=== PATIENT | male | born 1970 | race Caucasian/White ===

== ENCOUNTER → 2017-09-30 12:11 | Outpatient (CLI) | payer OTHER, SELFPAY ==
--- NOTE | 2017-09-30 12:15 | RAD_ITS ---
STUDY: X-RAY - LUMBAR SPINE REASON FOR EXAM: Male, 46 years old. Back pain. TECHNIQUE: 3 view(s) of the lumbar spine were obtained. COMPARISON: None FINDINGS: Normal lumbar lordosis. There is no substantial scoliosis. There is a normal alignment of the vertebrae. Normal vertebral bodies and endplates. Normal disc space heights. The soft tissue structures are unremarkable. RAD/Lumbar Spine 2 or 3 Views IMPRESSION: Normal x-ray examination of the lumbar spine. Electronically Signed: Tevin Wynne MD at 15:11 EDT Tel [phone], Service support ,
--- NOTE | 2017-09-30 12:15 | RAD_ITS ---
STUDY: X-RAY - THORACIC SPINE REASON FOR EXAM: Male, 46 years old. Back pain. TECHNIQUE: 3 view(s) of the thoracic spine were obtained. COMPARISON: None. FINDINGS: Normal kyphosis of the thoracic spine. There is no substantial scoliosis. Normal thoracic vertebrae and endplates. Normal disc space heights. The soft tissue structures are unremarkable. RAD/Thoracic Spine 2 Views IMPRESSION: Normal x-ray examination of the thoracic spine. Electronically Signed: Tevin Wynne MD at 15:20 EDT Tel [phone], Service support ,
== END ==
PROVIDERS: Family Provider Family Medicine; PCP Family Medicine; Visit Provider Family Medicine
DX: M54.9 Dorsalgia, unspecified (principal)
CPT/HCPCS: 72070; 72100

== ENCOUNTER → 2017-11-08 16:22 | Outpatient (CLI) | payer OTHER, SELFPAY | PROVIDERS: Family Provider Family Medicine; PCP Family Medicine | DX: H10.89 Other conjunctivitis (principal); A74.9 Chlamydial infection, unspecified | CPT/HCPCS: 87070; 87075; 87205 ==

== ENCOUNTER → 2017-11-25 13:02 | Outpatient (CLI) | payer OTHER, SELFPAY ==
[2017-11-25 13:52] LABS: Absolute Lymphocyte Count 2.42 X10^3/ul (0.83-4.51); Absolute Neutrophil Count 4.9 X10^3/uL (2.0-7.7); Basophil# 0.09 X10^3/uL; Eosinophil# 0.14 X10^3/uL; Eosinophils% 1.6 % (0-5); Hemoglobin 15.7 g/dl (13.0-16.5); Lymphocyte # 2.42 X10^3/ul (4.0); Lymphocyte % 26.9 % (19-41); Mean Corp Hgb Conc 34.1 g/gl (32-36); Mean Corpuscular Hgb 30.8 pg (27.0-32.0); Mean Corpuscular Volume 90.4 fL (80-94); Monocyte# 1.48 X10^3/uL; Monocyte% 16.4 % (0-10); Neutrophil # 4.86 X10^3/uL (2.7-7.7); Neutrophil % 53.9 % (47-70); Platelet Count 121 K/mm3 (150-450); RBC Distribution Width CV 14.3 % (11.6-14.6); RBC Distribution Width SD 47.2 fl (35.1-43.9); Red Blood Count 5.09 M/mm3 (4.6-6.2)
[2017-11-25 13:56] LABS: POSITIVE COUNT NO; POSITIVE DIFFERENTIAL NO; POSITIVE MORPHOLOGY NO
[2017-11-25 14:27] LABS: ALB/GLOB Ratio 1.1 RATIO (0.9-2.4); AST(SGOT) 19 U/L (15-37); Alanine Aminotransfer ALT/SGPT 28 U/L (16-61); Albumin, Serum 3.7 g/dL (3.2-5.0); Alkaline Phosphatase 71 U/L (45-117); Anion Gap 7 (5-15); BUN 11 mg/dL (7-18); BUN/Creat Ratio 9.4 RATIO (10-20); Calcium,Total 8.8 mg/dL (8.5-10.1); Chloride 107 mmol/L (98-107); Creatinine, Serum 1.17 mg/dL (0.70-1.30); EST Glomerular Filtration Rate 71 mL/min (>60); Est Glom Filt Rate - Afr Amer 86 mL/min (>60); Globulin 3.5 g/dL (2.2-4.2); Glucose 97 mg/dL (74-106); Potassium 3.6 mmol/L (3.5-5.1); Protein, Total 7.2 g/dL (6.4-8.2); Sodium Level 141 mmol/L (136-145); Thyroid Stim Hormone (TSH) 2.92 uIU/mL (0.358-3.74)
[2017-11-25 14:29] LABS: Vitamin D,25 Hydroxy 33.3 ng/mL (29.95-100.01)
[2017-12-01 16:10] LABS: Testosterone, Free 16.66 ng/dL (5.00-21.00)
[2017-12-02 09:43] LABS: Testosterone, % Free 3.76 % (1.50-4.20); Testosterone, Total 443 ng/dL (264-916)
== END ==
PROVIDERS: Family Provider Family Medicine; PCP Family Medicine; Visit Provider Family Medicine
DX: R53.83 Other fatigue (principal); N52.9 Male erectile dysfunction, unspecified
CPT/HCPCS: 36415; 80053; 82306; 84402; 84403; 84443; 85025

== ENCOUNTER → 2018-02-09 10:16 | Outpatient (CLI) | payer OTHER, SELFPAY ==
--- NOTE | 2018-02-09 10:18 | RAD_ITS ---
STUDY: X-RAY - LEFT KNEE REASON FOR EXAM: Male, 47 years old. Pain, decreased range of motion TECHNIQUE: 4 view(s) of the knee. COMPARISON: None. FINDINGS: Normal visualized distal femur. Normal visualized proximal tibia and fibula. Normal proximal tibiofibular articulation. There is mild degenerative arthrosis of the medial femorotibial compartment. Normal lateral femorotibial compartment. There is mild degenerative arthrosis of the patellofemoral articulation. The soft tissue structures are unremarkable. RAD/Knee 4 or More Views IMPRESSION: Degenerative arthrosis. Electronically Signed: Sj Garcia MD at 11:18 EDT , Service support ,
--- NOTE | 2018-02-09 10:20 | RAD_ITS ---
STUDY: X-RAY - RIGHT KNEE REASON FOR EXAM: Male, 47 years old. Pain, decreased range of motion TECHNIQUE: 4 view(s) of the knee. COMPARISON: None. FINDINGS: Normal visualized distal femur. Normal visualized proximal tibia and fibula. Normal proximal tibiofibular articulation. There is mild degenerative arthrosis of the medial femorotibial compartment. Normal lateral femorotibial compartment. There is mild degenerative arthrosis of the patellofemoral articulation. The soft tissue structures are unremarkable. RAD/Knee 4 or More Views IMPRESSION: Degenerative arthrosis. Electronically Signed: Sj Garcia MD at 11:19 EDT , Service support ,
== END ==
PROVIDERS: Family Provider Family Medicine; PCP Family Medicine; Visit Provider Family Medicine
DX: M25.561 Pain in right knee (principal); M25.562 Pain in left knee
CPT/HCPCS: 73564

== ENCOUNTER → 2018-07-31 15:57 | Outpatient (CLI) | payer OTHER, SELFPAY ==
--- NOTE | 2018-07-31 16:12 | EKG12_ITS ---
Test Reason : PREOP Blood Pressure : / mmHG Vent. Rate : 085 BPM Atrial Rate : 085 BPM P-R Int : 130 ms QRS Dur : 092 ms QT Int : 358 ms P-R-T Axes : 047 066 052 degrees QTc Int : 426 ms Normal sinus rhythm Normal ECG Confirmed by BRYANNA WHITE, SINGH ([id number]), social media editor JEFFERSON EDDY ([id number] on 08/01/2018 5:15:01 PM Referred By: Karthik Toledo Confirmed By:SINGH GOULD MD
[2018-07-31 17:16] LABS: Hemoglobin 15.1 g/dl (13.0-16.5); Mean Corp Hgb Conc 32.8 g/gl (32-36); Mean Corpuscular Hgb 30.6 pg (27.0-32.0); Mean Corpuscular Volume 93.1 fL (80-94); Mean Platelet Vol. 10.7 fl (6.2-12.0); Platelet Count 137 K/mm3 (150-450); RBC Distribution Width CV 13.5 % (11.6-14.6); RBC Distribution Width SD 44.7 fl (35.1-43.9); Red Blood Count 4.94 M/mm3 (4.6-6.2); White Blood Count 8.4 K/mm3 (4.4-11.0)
[2018-07-31 17:23] LABS: Scan Indicated on CBC? Y/N NO
[2018-07-31 17:36] LABS: Anion Gap 10 (5-15); BUN 18 mg/dL (7-18); BUN/Creat Ratio 17.5 RATIO (10-20); Chloride 103 mmol/L (98-107); Creatinine, Serum 1.03 mg/dL (0.70-1.30); EST Glomerular Filtration Rate 82 mL/min (>60); Est Glom Filt Rate - Afr Amer 99 mL/min (>60); Glucose 81 mg/dL (74-106); Potassium 3.8 mmol/L (3.5-5.1); Sodium Level 142 mmol/L (136-145)
== END ==
PROVIDERS: Family Provider Family Medicine; PCP Family Medicine; Referring Provider Physician Assistant; Visit Provider Physician Assistant
DX: Z01.818 Encounter for other preprocedural examination (principal); Z01.810 Encounter for preprocedural cardiovascular examination; I10 Essential (primary) hypertension; F17.200 Nicotine dependence, unspecified, uncomplicated
CPT/HCPCS: 36415; 80048; 85027; 93005

== ENCOUNTER → 2018-08-09 10:56 | Outpatient (CLI) | payer OTHER, SELFPAY ==
--- NOTE | 2018-08-09 11:07 | RAD_ITS ---
STUDY: X-RAY CHEST REASON FOR EXAM: Male, 47 years old. Knee surgery, preop evaluation TECHNIQUE: PA and lateral views of the chest. COMPARISON: 02/09/2016 FINDINGS: The lungs are clear and expanded. There is no demonstrated pleural abnormality. Normal size heart. Normal mediastinum and ousmane. Normal visualized pulmonary arteries. Normal visualized aortic arch and descending thoracic aorta. Normal visualized thoracic spine. Normal visualized ribs, clavicles, and shoulders. There is no demonstrated abnormality of the visualized soft tissue structures of the upper abdomen. RAD/Chest PA and Lateral IMPRESSION: Normal x-ray examination of the chest. Electronically Signed: Zoran Carlson DO at 11:54 EST Tel , Service support ,
--- OUTSIDE RECORDS SUMMARY | 2018-10-11 08:54 | XMS RPT_ITS ---
:1970 Author Organization OHIP Care Team Providers Name Role Phone Karthik Toledo Attending Unavailable Karthik Toledo Referring Unavailable Kenny, Vasile Primary Care Unavailable Malik Yousesf Attending Unavailable Malik Youssef Referring Unavailable Cox, Vasile Primary Care Unavailable Vasile Cox Attending Unavailable Vasile Cox Referring Unavailable Kenny, Vasile Primary Care Unavailable Vincent Perkins Attending Unavailable Kenny Vasile Primary Care Unavailable Vincent Perkins Referring Unavailable PATRIA TOMAS Attending Unavailable PATRIA TOMAS Referring Unavailable Vasile Cox Primary Care Unavailable Karthik Toledo Attending Unavailable Karthik Toledo Referring Unavailable Vasile Cox Primary Care Unavailable Joe Bolaños Consulting Unavailable PROBLEMS PROBLEMS DATE TYPE CONDITION / CODE ATTENDING STATUS SOURCE 02/09/2018 Unknown M25.561 - Pain in [place], Active Bhavana right knee / [facility] M25.561(ICD-10) Hospital Repository 02/09/2018 Unknown M25.562 - Pain in Domonique, Active [facility] [facility] [place] M25.562(ICD-10) Hospital Repository 11/21/2017 Unknown H10.89 - Other PATRIA TOMAS Active [place] conjunctivitis / [facility] H10.89(ICD-10) Hospital Repository PROCEDURES PROCEDURES No Procedure Records FoundRESULTS RESULTS CHEST PA AND LATERAL Observed: 08/09/2018 Status: F Source: [facility] 11:07 AM [facility] REPOSITORY [facility] Imaging Services [address] [place] [address] Chest PA and Lateral MR#: [id number] Acct: [id number] Name: TYRONEMAGDALENO M Rep #: [id number] : 1970 M 47 [facility] PCP: Vasile Cox MD Status: REG CLI Study: Chest PA and Lateral Date of Exam: 08/09/18 Exam# [id number] Ordering Dr: Karthik Toledo PA-C STUDY: X-RAY CHEST REASON FOR EXAM: Male, 47 years old. Knee surgery, preop evaluation TECHNIQUE: PA and lateral views of the chest. COMPARISON: 02/09/2016 FINDINGS: The lungs are clear and expanded. There is no demonstrated pleural abnormality. Normal size heart. Normal mediastinum and ousmane. Normal visualized pulmonary arteries. Normal visualized aortic arch and descending thoracic aorta. Normal visualized thoracic spine. Normal visualized ribs, clavicles, and shoulders. There is no demonstrated abnormality of the visualized soft tissue structures of the upper abdomen. RAD/Chest PA and Lateral IMPRESSION: Normal x-ray examination of the chest. Electronically Signed: Zoran Carlson DO at 11:54 EST Tel , Service support , CC: Vasile Cox MD; Karthik YIN Pilot Plant Research Technician: Signed 12 LEAD ELECTROCARDIOGRAM Observed: 08/01/2018 Status: F Source: [place] 5:15 PM [facility] REPOSITORY [facility] Cardiovascular Services [address] [place] [address] 12 Lead EKG 07/31/18 1618 MR#: [id number] Acct: [id number] Name: MAGDALENO HANSEN Rep #: [id number] : 1970 47 From: Soto Mohr MD Attending Dr: Karthik Brannon Status: REG CLI Ordering Dr: Karthik Toledo PA-C Date: 07/31/18 Location: LAB Sex: M C Admitted: Test Reason : PREOP Blood Pressure : / mmHG Vent. Rate : 085 BPM Atrial Rate : 085 BPM P-R Int : 130 ms QRS Dur : 092 ms QT Int : 358 ms P-R-T Axes : 047 066 052 degrees QTc Int : 426 ms Normal sinus rhythm Normal ECG Confirmed by BRYANNA WHITE, SOTO ([id number]), supervising editor trailer JEFFERSON EDDY ([id number]) on 08/01/2018 5:15:01 PM Referred By: Karthik Toledo Confirmed By:SOTO MOHR MD 08/01/18 1715 Date Soto Mohr MD CC: Vasile Cox MD; Karthik YIN Signed CBC-COMPLETE BLOOD CNT Collected: 07/31/2018 Status: F Source: [place] NO DIFF 4:01 PM [facility] REPOS[facility]ORY TYPE CODE TESTS RESULT OUT OF RANGE REFERENCE UNITS LAB L100.1000 4.4-11.0 K/mm3 Normal WBC 8.4 LAB L100.1200 4.6-6.2 M/mm3 Normal RBC 4.94 LAB L100.1300 13.0-16.5 g/dl Normal HGB 15.1 LAB L100.1400 40-54 % Normal HCT 46.0 LAB L100.1500 80-94 fL Normal MCV 93.1 LAB L100.1600 27.0-32.0 pg Normal MCH 30.6 LAB L100.1700 32-36 g/gl Normal MCHC 32.8 LAB L100.1810 11.6-14.6 % Normal RDW CV 13.5 LAB L100.1820 35.1-43.9 fl High RDW SD 44.7 LAB L100.1900 150-450 K/mm3 Low PLT 137 LAB L100.2000 6.2-12.0 fl Normal MPV 10.7 Performed By: #### L100.0500 #### [facility] [address] [place], [address] BASIC METABOLIC Collected: 07/31/2018 Status: F Source: [facility] PROFILE ([facility]) 4:01 PM [facility] REPOS[facility] TYPE CODE TESTS RESULT OUT OF RANGE REFERENCE UNITS LAB L501.0100 74-106 mg/dL Normal GLU 81 Result Comment: Please note revised GLUCOSE reference range effective 2017. LAB L501.1000 7-18 mg/dL Normal BUN 18 LAB L501.1100 0.70-1.30 mg/dL Normal CREAT,SERUM 1.03 Result Comment: The validity of the calculated GFR AND GFRAA in patients over 70 years has not been determined. Clinical correlation is essential. LAB L501.1110 >60 mL/min Normal EST GFR 82 Result Comment: Non- GFR Calc LAB L501.1115 >60 mL/min Normal EST GFR - AA 99 Result Comment: GFR Calc LAB L501.1300 10-20 RATIO Normal BUN/CRE 17.5 LAB L501.2200 8.5-10.1 mg/dL CA Normal 9.0 LAB L501.5300 136-145 mmol/L NA Normal 142 LAB L501.5600 3.5-5.1 mmol/L K Normal 3.8 LAB L501.5900 98-107 mmol/L CL Normal 103 LAB L501.6100 21.0-32.0 mmol/L Normal CO2 29.0 LAB L501.6200 5-15 Normal GAP 10 Performed By: #### L500.2500 #### [facility] [address] [place], [address] KNEE 4 OR MORE Observed: 02/09/2018 Status: F Source: [place] VIEWS 10:19 AM [facility] REPOSITORY [facility] Imaging Services [address] [place] [address] Knee 4 or More Views MR#: [id number] Acct: [id number] Name: MAGDALENO HANSEN Rep #: [id number] : 1970 M 47 From: Sebastián Garcia MD PCP: Vasile Cox MD Status: REG CLI Study: Knee 4 or More Views Date of Exam: 02/09/18 Exam# [id number] Ordering Dr: Gerber Youssef MD STUDY: X-RAY - LEFT KNEE REASON FOR EXAM: Male, 47 years old. Pain, decreased range of motion TECHNIQUE: 4 view(s) of the knee. COMPARISON: None. FINDINGS: Normal visualized distal femur. Normal visualized proximal tibia and fibula. Normal proximal tibiofibular articulation. There is mild degenerative arthrosis of the medial femorotibial compartment. Normal lateral femorotibial compartment. There is mild degenerative arthrosis of the patellofemoral articulation. The soft tissue structures are unremarkable. RAD/Knee 4 or More Views IMPRESSION: Degenerative arthrosis. Electronically Signed: Sj Garcia MD at 11:18 EDT , Service support , CC: Malik Youssef MD; Vasile Cox MD Pilot Plant Research Technician: Signed KNEE 4 OR MORE Observed: 02/09/2018 Status: F Source: [place] VIEWS 10:19 AM [facility] REPOSITORY [facility] Imaging Services [address] [place] [address] Knee 4 or More Views MR#: [id number] Acct: [id number] Name: MAGDALENO HANSEN Rep #: [id number] : 1970 M 47 From: Sebastián Garcia MD PCP: Vasile Cox MD Status: REG CLI Study: Knee 4 or More Views Date of Exam: 02/09/18 Exam# [id number] Ordering Dr: Gerber Youssef MD STUDY: X-RAY - RIGHT KNEE REASON FOR EXAM: Male, 47 years old. Pain, decreased range of motion TECHNIQUE: 4 view(s) of the knee. COMPARISON: None. FINDINGS: Normal visualized distal femur. Normal visualized proximal tibia and fibula. Normal proximal tibiofibular articulation. There is mild degenerative arthrosis of the medial femorotibial compartment. Normal lateral femorotibial compartment. There is mild degenerative arthrosis of the patellofemoral articulation. The soft tissue structures are unremarkable. RAD/Knee 4 or More Views IMPRESSION: Degenerative arthrosis. Electronically Signed: Sj Garcia MD at 11:19 EDT , Service support , CC: Malik Youssef MD; Vasile Cox MD Pilot Plant Research Technician: Signed CBC W/DIFF, AUTOMATED Collected: 11/25/2017 Status: F Source: [place] 1:06 PM [facility] REPOSITORY Order Comment: Order Date: 10/25/17 Order Info: 0184-1 - CBCD TYPE CODE TESTS RESULT OUT OF RANGE REFERENCE UNITS LAB L100.1000 4.4-11.0 K/mm3 Normal WBC 9.0 LAB L100.1200 4.6-6.2 M/mm3 Normal RBC 5.09 LAB L100.1300 13.0-16.5 g/dl Normal HGB 15.7 LAB L100.1400 40-54 % Normal HCT 46.0 LAB L100.1500 80-94 fL Normal MCV 90.4 LAB L100.1600 27.0-32.0 pg Normal MCH 30.8 LAB L100.1700 32-36 g/gl Normal MCHC 34.1 LAB L100.1810 11.6-14.6 % Normal RDW CV 14.3 LAB L100.1820 35.1-43.9 fl High RDW SD 47.2 LAB L100.1900 150-450 K/mm3 Low PLT 121 LAB L100.2000 6.2-12.0 fl Normal MPV 11.0 LAB L100.2100 47-70 % Normal NEUT% 53.9 LAB L100.2200 19-41 % Normal LY% 26.9 LAB L100.2300 0-10 % High MONO% 16.4 LAB L100.2400 0-5 % Normal EO% 1.6 LAB L100.2500 0-1 % Normal BASO% 1.0 LAB L100.2550 0.0-0.9 % Normal IM GRAN % 0.200 Result Comment: IG% - Immature Granulocytes (promyelocytes, myelocytes and metamyelocytes) > 1% indicates that a LEFT SHIFT is Present. LAB L100.2620 2.0-7.7 X10 3/uL Normal Absolute Neut 4.9 LAB L100.2720 0.83-4.51 X10 3/ul Normal Absolute Lymph 2.42 Performed By: #### L100.0100, L500.4050, L501.9520, L506.1000 #### [facility] [address] [place] [address]. [place], [place], [address] #### L3100.5310 #### [facility] (refer to report for specific site) refer to report for address and phone number COMPREHENSIVE METABOLIC Collected: 11/25/2017 Status: F Source: [facility] FERNANDO 1:06 PM [facility] REPOSITORY Order Comment: Order Date: 10/25/17 Order Info: 0786-1 - CMP Order Info: 3016-3 - TSH TYPE CODE TESTS RESULT OUT OF RANGE REFERENCE UNITS LAB L501.0100 74-106 mg/dL Normal GLU 97 Result Comment: Please note revised GLUCOSE reference range effective 2017. LAB L501.1000 7-18 mg/dL Normal BUN 11 LAB L501.1100 0.70-1.30 mg/dL Normal CREAT,SERUM 1.17 Result Comment: The validity of the calculated GFR AND GFRAA in patients over 70 years has not been determined. Clinical correlation is essential. LAB L501.1110 >60 mL/min Normal EST GFR 71 Result Comment: Non- GFR Calc LAB L501.1115 >60 mL/min Normal EST GFR - AA 86 Result Comment: GFR Calc LAB L501.1300 10-20 RATIO Low BUN/CRE 9.4 LAB L501.1500 6.4-8.2 g/dL Normal T PROT 7.2 LAB L501.1800 3.2-5.0 g/dL Normal ALB 3.7 LAB L501.1950 2.2-4.2 g/dL Normal GLOB 3.5 LAB L501.2000 0.9-2.4 RATIO Normal A/G 1.1 LAB L501.2200 8.5-10.1 mg/dL Normal CA 8.8 LAB L501.4100 15-37 U/L Normal AST 19 LAB L501.4305 45-117 U/L Normal ALK P 71 LAB L501.4405 16-61 U/L Normal ALT 28 LAB L501.4600 0.20-1.00 mg/dL Normal T BILI 0.40 LAB L501.5300 136-145 mmol/L Normal NA 141 LAB L501.5600 3.5-5.1 mmol/L Normal K 3.6 LAB L501.5900 98-107 mmol/L Normal CL 107 LAB L501.6100 21.0-32.0 mmol/L Normal CO2 27.0 LAB L501.6200 5-15 Normal GAP 7 Performed By: #### L100.0100, L500.4050, L501.9520, L506.1000 #### [facility] [address] [place], [place], [address] #### L3100.5310 #### [facility] (refer to report for specific site) refer to report for address and phone number THYROID STIM HORMONE Collected: 11/25/2017 Status: F Source: [place] (TSH) 1:06 PM [facility] REPOSIT[facility] Order Comment: Order Date: 10/25/17 Order Info: 0786-1 - CMP Order Info: 3016-3 - TSH TYPE CODE TESTS RESULT OUT OF RANGE REFERENCE UNITS LAB L501.9520 0.358-3.74 uIU/mL Normal TSH 2.92 Performed By: #### L100.0100, L500.4050, L501.9520, L506.1000 #### [facility] [address] [place], [address] #### L3100.5310 #### [facility] (refer to report for specific site) refer to report for address and phone number VITAMIN D,25 HYDROXY Collected: 11/25/2017 Status: F Source: [place] 1:06 PM [facility] REPOSIT[facility] Order Comment: Order Date: 10/25/17 Order Info: 69360-5 - VITD25 TYPE CODE TESTS RESULT OUT OF RANGE REFERENCE UNITS LAB L506.1000 29.95-100.01 ng/mL Normal Vitamin D 33.3 25-OH Result Comment: Vitamin D 25(OH) Status Range Deficiency <20 ng/mL (50nmol/L) Insuffciency 20 - 30 ng/mL (50 - 75 nmol/L) Sufficiency 30 - 100 ng/mL (75 - 250 nmol/L) Toxicity >100 ng/mL (>250 nmol/L) Performed By: #### L100.0100, L500.4050, L501.9520, L506.1000 #### [facility] [address] [facility] [place], [address] #### L3100.5310 #### [facility] (refer to report for specific site) refer to report for address and phone number TESTOSTERONE, TOTAL / Collected: 11/25/2017 Status: F Source: [place] FREE 1:06 PM [facility] REPOSITORY Order Comment: Order Date: 10/25/17 Order Info: 0024-1 - TESTF Has Patient had X-rays with Contrast this admission? Y TYPE CODE TESTS RESULT OUT OF RANGE REFERENCE UNITS LAB L3100.5320 264-916 ng/dL Normal 443 TESTALFREDOTO MINNA Result Comment: Adult male reference interval is based on a population of healthy nonobese males (BMI <30) between 19 and 39 years old. sherlyn Vides.al. JCEM 2017,102;9236-8817. PMID: 10095469. LAB L3100.5340 5.00-21.00 ng/dL TESTOSTER,FREE Normal 16.66 LAB L3100.5360 1.50-4.20 % TESTOSTER %FREE Normal 3.76 Result Comment: Performed at: - [facility] [id number] Saw Setter: Eliud Ferreira PhD, Phone: [phone] Performed at: [facility] [id number] Saw Setter: Steve Campa MD, Phone: [phone] Performed By: #### L100.0100, L500.4050, L501.9320, L506.1000 #### [facility] [place], [place], [address] #### L3100.5310 #### [facility] (refer to report for specific site) refer to report for address and phone number Observed: 11/08/2017 Status: F Source: [place] CULTURE, EYE 1:30 PM [facility] REPOS[facility] Comments: RIGHT EYE Gram Stain Gram Stain No organisms seen No cells seen Eye Culture Culture exhibits no growth. Cult, Anaerobic No anaerobic bacteria isolated. Performed By: #### M100.1200 #### [facility] [address] [facility] [place], [place], [id number] Observed: 11/08/2017 Status: F Source: [place] CULTURE, EYE 1:30 PM [facility] REPOS[facility] Comments: LEFT EYE Gram Stain Gram Stain No organisms seen No cells seen Eye Culture Culture exhibits no growth. Cult, Anaerobic No growth in 5 days. Performed By: #### M100.1200 #### [facility]. [place], [place], [id number] MISCELLANEOUS LAB Collected: 11/08/2017 Status: F Source: [place] PROCEDURE 1:30 PM [facility] REPOS[facility] Order Comment: Comments: RIGHT EYE Test(s) Ordered: [id number] TYPE CODE TESTS RESULT OUT OF RANGE REFERENCE UNITS LAB L801.1541 Normal [facility] Result Comment: Chlamydia trachomatis culture Negative [facility] AT [facility]. ORIGINAL REPORT ON FILE IN LAB CONTAINS ADDITIONAL TEST SITE INFORMATION. Performed By: #### L801.1541 #### [facility] [address] [place] [address] [place], [address] MISCELLANEOUS LAB Collected: 11/08/2017 Status: F Source: [place] PROCEDURE 1:30 PM [facility] REPOS[facility] Order Comment: Comments: LEFT EYE Test(s) Ordered: [id number] TYPE CODE TESTS RESULT OUT OF RANGE REFERENCE UNITS LAB L801.1541 Normal [facility] Result Comment: Chlamydia trachomatis culture Negative TESTING PERFORMED AT [facility]. ORIGINAL REPORT ON FILE IN LAB CONTAINS ADDITIONAL TEST SITE INFORMATION. Performed By: #### L801.1541 #### [facility] [address] [place], [place] [address] [place], [place] [address] LUMBAR SPINE 2 OR 3 Observed: 09/30/2017 Status: F Source: [place] VIEWS 12:15 PM [facility]IT[facility] Imaging Services [address] [place] [address] Lumbar Spine 2 or 3 Views MR#: [id number] Acct: [id number] Name: MAGDALENO HANSEN Rep #: [id number] : 1970 M 46 From: Tevin Wynne MD PCP: Vasile Cox MD Status: REG CLI Study: Lumbar Spine 2 or 3 Views Date of Exam: 09/30/17 Exam# [id number] Ordering Dr: Vincent Perkins MD STUDY: X-RAY - LUMBAR SPINE REASON FOR EXAM: Male, 46 years old. Back pain. TECHNIQUE: 3 view(s) of the lumbar spine were obtained. COMPARISON: None FINDINGS: Normal lumbar lordosis. There is no substantial scoliosis. There is a normal alignment of the vertebrae. Normal vertebral bodies and endplates. Normal disc space heights. The soft tissue structures are unremarkable. RAD/Lumbar Spine 2 or 3 Views IMPRESSION: Normal x-ray examination of the lumbar spine. Electronically Signed: Tevin Wynne MD at 15:11 EDT Tel [phone], Service support , CC: Vasile Cox MD; Vincent Perkins MD Pilot Plant Research Technician: Signed THORACIC SPINE 2 Observed: 09/30/2017 Status: F Source: [facility] VIEWS 12:15 PM [facility] REPOSIT[facility] Imaging Services [address] [place] [address] Thoracic Spine 2 Views MR#: [id number] Acct: [id number] Name: MAGDALENO HANSEN Rep #: [id number] : 1970 M 46 From: Tevin Wynne MD PCP: Vasile Cox MD Status: REG CLI Study: Thoracic Spine 2 Views Date of Exam: 09/30/17 Exam# [id number] Ordering Dr: Vincent Perkins MD STUDY: X-RAY - THORACIC SPINE REASON FOR EXAM: Male, 46 years old. Back pain. TECHNIQUE: 3 view(s) of the thoracic spine were obtained. COMPARISON: None. FINDINGS: Normal kyphosis of the thoracic spine. There is no substantial scoliosis. Normal thoracic vertebrae and endplates. Normal disc space heights. The soft tissue structures are unremarkable. RAD/Thoracic Spine 2 Views IMPRESSION: Normal x-ray examination of the thoracic spine. Electronically Signed: Tevin Wynne MD at 15:20 EDT Tel [phone], Service support , CC: Vasile Cox MD; Vincent Perkins MD Pilot Plant Research Technician: Signed ALLERGIES ALLERGIES DATE TYPE / CODE NAME / CODE REACTION SEVERITY SOURCE 12/30/2013 Drug No Known Unknown [place]hav[place] [facility] Allergy/4160 Allergies/F00 Hospital [address]11(SNOMED [id number](RXNOR Repository CT) M) ENCOUNTERS ENCOUNTERS ADMIT/DISCHARGE ACCOUNT ADMITTING ENCOUNTER LOCATION SOURCE NUMBER CLASS 08/09/2018 [id number] [place] 1 [facility] ing:RAD Repository 07/31/2018 [id number] Ambulatory [place] 0 [facility] ing:LAB Repository 02/09/2018 [id number] Ambulatory [place] Bhavana 3 [facility] ing:MTRAD Repository 11/25/2017 [id number] [place] 5 [facility] ing:MTLAB Repository 11/08/2017 [id number] Ambulatory [place] 0 [facility] ing:LABSPEC Repository 09/30/2017 [id number] Ambulatory [place] 7 [facility] ing:MTRAD Repository PAYERS PAYERS ENCOUNTER GUARANTOR PAYER SUBSCRIBER SOURCE 08/09/2018 MAGDALENO Pelaez Primary Insurance:EDDIE [id number] [facility] ANIKA Number: [id number], [place] [id number] Repository [address]Yee: (330) Date:7407-43-31[phone] () [address]VVWHUPQRD, [place] [address]LY: CHECK WEBSITE 08/09/2018 Secondary NOT GIVENUNK [place] Insurance:SELF PAY [facility] Number: Effective Repository Date:2018-08-09 07/31/2018 MAGDALENO Pelaez Primary Insurance:MED MAGDALENO Bateman [id number] MUTUAL TPAPolicy SHEARERDOB: [facility] ANIKA Number: [id number], [place] [id number] Repository [address]Kjz: (330) Date:6209-68-78QB [phone] () [address]JOKHDVCGR, [place] [address]WZ: CHECK WEBSITE 07/31/2018 Secondary NOT GIVENUNK [place] Insurance:SELF PAY [facility] Number: Effective Repository Date:2018-07-31 02/09/2018 Magdaleno Pelaez Primary Insurance:MED Magdaleno Bateman [id number] MUTUAL TPAPolicy ShearerDOB: [facility] [place] Number: [id number], [place] [id number] Repository [address]Tpt: (330) Date:0374-12-05ZB [phone] () [address]MLMPDILAE, [place] [address]MC: CHECK WEBSITE 02/09/2018 Secondary NOT GIVENUNK [place] Insurance:SELF PAY [facility] Number: Effective Repository Date:2018-02-09 11/25/2017 Magdaleno Pelaez Primary Insurance:MED Magdaleno Pulidooster [id number] MUTUAL TPAPolicy ShearerDOB: [facility] [place] Number: [id number], [place] [id number] Repository [address]Gcr: (330) Date:9561-21-61BN [phone] () [address]HAUJHWJSS, [place] [address]KJ: CHECK WEBSITE 11/25/2017 Secondary NOT GIVENUNK [place] Insurance:SELF PAY [facility] Number: Effective Repository Date:2017-11-25 11/08/2017 Magdaleno Pelaez Primary Insurance:MED Magdaleno M [place] [id number] MUTUAL TPAPolicy ShearerDOB: [facility] Number: [id number], [place] [id number] Repository [address]Rcl: (330) Date:1419-71-26VR [phone] () [address]PNUUWPMKM, [place] [address]KI: CHECK WEBSITE 11/08/2017 Secondary NOT GIVENUNK [place] Insurance:SELF PAY [facility] Number: Effective Repository Date:2017-11-08 09/30/2017 Magdaleno Pelaez Primary Insurance:MED Magdaleno [id number] [facility] ShearerDOB: [facility] Number: [id number], [place] [id number] Repository [address]Fko: (330) Date:8516-29-80MS [phone] () [address]RSEPCLGCF, [place] [address]NA: CHECK WEBSITE 09/30/2017 Secondary NOT GIVENUNK [place] Insurance:SELF PAY [facility] Number: Effective Repository Date:2017-09-30
== END ==
PROVIDERS: Family Provider Family Medicine; PCP Family Medicine; Referring Provider Physician Assistant; Visit Provider Physician Assistant
DX: Z01.818 Encounter for other preprocedural examination (principal); Z01.810 Encounter for preprocedural cardiovascular examination; I10 Essential (primary) hypertension; F17.200 Nicotine dependence, unspecified, uncomplicated
CPT/HCPCS: 71046

== ENCOUNTER → 2019-05-16 12:24 | Outpatient (CLI) | payer OTHER, SELFPAY ==
[2019-05-16 14:09] LABS: Hematocrit 47.3 % (40-54); Hemoglobin 15.5 g/dL (13.0-16.5); White Blood Count 6.4 K/mm3 (4.4-11.0)
[2019-05-16 14:36] LABS: Anion Gap 8 (5-15); BUN 16 mg/dL (7-18); Calcium,Total 9.7 mg/dL (8.5-10.1); Chloride 105 mmol/L (98-107); Creatinine, Serum 1.07 mg/dL (0.70-1.30); EST Glomerular Filtration Rate 78 mL/min (>60); Est Glom Filt Rate - Afr Amer 94 mL/min (>60); Glucose 101 mg/dL (74-106); Potassium 3.7 mmol/L (3.5-5.1); Sodium Level 140 mmol/L (136-145); Thyroid Stim Hormone (TSH) 1.27 uIU/mL (0.358-3.74)
== END ==
PROVIDERS: Family Provider Family Medicine; PCP Family Medicine; Visit Provider Family Medicine
DX: R00.2 Palpitations (principal)
CPT/HCPCS: 36415; 80048; 84443; 85014; 85018; 85048

== ENCOUNTER 2019-06-30 21:02 | Emergency (ER) | payer OTHER, SELFPAY ==
[2019-06-30 21:03] VITALS: BP 169/127; PULSE 90; RESP 18; TEMP 36.2; O2SAT 99; BMI 27.3
--- NOTE | 2019-06-30 21:34 | ED.DCSUM_ITS ---
History of Present Illness Chief Complaint: Back Informant: Patient Onset: Today Narrative: Patient is a 48-year-old male presenting with atraumatic back pain. Patient states he was sitting down and suddenly had pain in his right lower back. He notes he also has pain in his right calf. Pain is worse with movement. He describes as feeling there is a ball of muscle that is tightened up and will not relax. He denies any associated fever or chills. He denies any bowel or bladder incontinence. Denies any perineal numbness. He denies any history of cancer or IV drug use. He states he is never had anything like this before. He denies any history of back problems. He did take 3 Excedrin with no significant relief. Patient states he does not normally take anything for pain on a regular basis. He does note that over the weekend he has been putting [place] lights who is been going up and down the ladder a lot. He denies any other complaints at this time. Prior similar symptoms: No Past Medical History - Allergies and Home Meds Allergies/Adverse Reactions: Allergies No Known Allergies Allergy (Verified 06/30/19 21:04) Primary Care Physician: Vasile Cox MD [Primary Care Provider] - Past Medical History: - - GERD, arthritis Surgical History: - - Total knee Lives: Spouse/ Significant Other Smoking Status: Current every day smoker Review of Systems General: Denies: Chills, Fever, Sweats Eyes: Denies: Visual changes - bilaterally, Diplopia ENT: Denies: Rhinorrhea, Sore throat Cardiovascular: Denies: Chest pain, Palpitations Respiratory: Denies: Dyspnea, Cough, Dyspnea on exertion Gastrointestinal: Denies: Abdominal pain, Nausea, Vomiting, Diarrhea, Melena, Hematochezia Genitourinary: Denies: Dysuria, Hematuria, Frequency Musculoskeletal: Reports: Back pain. Denies: Extremity Pain Skin: Denies: Rash, Wounds Neurological: Denies: Headache, Weakness, Numbness Physical Exam Vital Signs/Narrative: Vital Signs Temp Pulse Resp BP Pulse Ox 06/30/19 21:03 97.2 F L 90 18 169/127 H 99 Inital Vital Signs reviewed: Yes General: Well nourished, Well developed Head: Normocephalic, Atraumatic Eyes: Perrl, EOMI ENT: Moist mucous membranes, No rhinorrhea Neck: Supple, Nontender Cardiovascular: Regular rate, Regular rhythm, No murmurs, - - 2+ bilateral DP pulses Respiratory: No distress, CTA bilaterally, Chest nontender Abdomen: Soft, Nontender, Nondistended, Normal bowel sounds. Negative for: Mass Back: Normal Inspection, Paraspinal Tenderness - Right lower lumbar/sacral area, Positive SLR - Right, Negative SLR - Left. Negative for: Spinal tenderness, CVA tenderness Extremeties: Nontender, No edema Skin: Normal color, No rash Neuro: Alert, Oriented, Normal Strength, Normal Sensation, Normal DTR, Normal Gait, - Psychological: Normal affect Diagnostic/Tx/Re-eval - Medical Decision Making Patient evaluated for atraumatic low back pain. His pain is consistent with sciatica. He has an ipsilateral positive straight leg test. He does not have midline tenderness. He does not have any symptoms concerning for cauda equina syndrome. He is hypertensive but this is likely secondary to his pain. Patient is initially given IM morphine, p.o. Motrin and IM Norflex. He has only minimal improvement with this. He continues to describe a sensation of a pulled muscle so he was then given another dose of IM morphine and p.o. Valium. Patient does have further improvement. Patient will be discharged home with a course of Chilton and Flexeril. He is also given a prescription for Motrin and told to stop taking the meloxicam while he is on this. He is given a p.o. Chilton prior to discharge. Patient is given discharge instructions on sciatica. Patient is counseled on signs and symptoms requiring return to the emergency room. Patient verbalizes agreement and understand this plan. Patient discharged home in stable and improved condition. ED Disposition - Plan for ED Patient: Disposition: Home or Assisted Living Diagnosis: Sciatica, Low back pain Instructions: BACK PAIN w/ SCIATICA Prescriptions: cycloBENZAPRine HCl [Flexeril] 10 mg PO TID PRN #20 tab PRN Reason: Muscle Spasm Prescription Printed Ibuprofen [Motrin] 600 mg PO Q6H PRN PRN #20 tab PRN Reason: Pain/Inflammation Prescription Printed Hydrocodone/Acetaminophen [Chilton 5-325 Tablet] 1 ea PO Q8 PRN 3 Days #10 tab PRN Reason: Pain Score 6-10/10 Prescription Printed Referrals: Vasile Cox MD [Primary Care Provider] - Additional Instructions: Follow-up with your primary care doctor next week if the pain persist. Apply heat to your lower back as this might help. Continue to move around and stretch. You been prescribed Motrin. Take either the Motrin or your Mobic. Do not take both as it would irritate your stomach. Return the emergency room with any worsening symptoms.
[2019-06-30] MEDS: Orphenadrine 60 MG/2 ML Ampul IM (21:54)
[2019-06-30] MEDS: Morphine 4 MG/ML Syringe IM ×2 (21:55→23:36)
[2019-06-30] MEDS: diazePAM 5 MG Tablet PO (22:58)
[2019-06-30] MEDS: Ibuprofen 600 MG Tablet PO (22:58)
[2019-07-01] MEDS: HYDROcodone Bitartrate/Apap 5/325 Tablet PO (00:24)
[2019-07-01 00:26] VITALS: RESP 16
== END 2019-07-01 00:27 | disposition home or self-care (01) ==
PROVIDERS: Emergency Provider Emergency Medicine; Family Provider Family Medicine; PCP Family Medicine
DX: M54.41 Lumbago with sciatica, right side (principal); R03.0 Elevated blood-pressure reading, without diagnosis of hypertension; M19.90 Unspecified osteoarthritis, unspecified site; K21.9 Gastro-esophageal reflux disease without esophagitis; F17.200 Nicotine dependence, unspecified, uncomplicated; Z79.899 Other long term (current) drug therapy
CPT/HCPCS: 96372; 99283

== ENCOUNTER → 2019-09-24 17:44 | Outpatient (CLI) | payer OTHER, SELFPAY | PROVIDERS: PCP Family Medicine; Referring Provider Family Medicine; Visit Provider Family Medicine | DX: R68.89 Other general symptoms and signs (principal) | CPT/HCPCS: 87070; 87205 ==

== ENCOUNTER → 2019-12-07 16:33 | Outpatient (CLI) | payer OTHER, SELFPAY ==
--- NOTE | 2019-12-07 16:36 | RAD_ITS ---
STUDY: X-RAY - LEFT ELBOW REASON FOR EXAM: Male, 49 years old. Left elbow pain x 2 weeks -- no injury, lifting objects is most painful TECHNIQUE: 3 view(s) of the elbow. COMPARISON: None. FINDINGS: Normal visualized humerus, radius and ulna. Normal radiocapitellar and ulnotrochlear articulations. The soft tissue structures are unremarkable. RAD/Elbow min 3 Views IMPRESSION: Normal x-ray examination of the elbow. Electronically Signed: Sj Garcia MD at 17:22 EDT , Service support ,
== END ==
PROVIDERS: PCP Family Medicine; Referring Provider Family Medicine; Visit Provider Family Medicine
DX: M25.522 Pain in left elbow (principal)
CPT/HCPCS: 73080

== ENCOUNTER → 2019-12-27 15:49 | Outpatient (CLI) | payer OTHER, SELFPAY ==
--- NOTE | 2019-12-27 16:06 | MRI_ITS ---
STUDY: MRI RIGHT ELBOW REASON FOR EXAM: Male, 49 years old. PT FELT and quot;POP and quot; IN ELBOW WHILE THROWING A STICK 2 MONS AGO, C/O PAIN ENTIRE ELBOW JOINT, NOW BURSA FORMATION TECHNIQUE: Standardized fat and water weighted pulse sequences were obtained in all 3 orthogonal planes. COMPARISON: X-ray December 07, 2019. FINDINGS: There is a moderate volume joint effusion of the radio-capitellum articulation. Normal radial collateral ligamentous complex. There is a tendinosis of the common extensor tendon origin with a partial deep surface tear, series 6 images 13/24 and 14/24. There is a small volume joint effusion of the ulnotrochlear articulation. Normal ulnar collateral ligamentous complex. There is a tendinosis of the common flexor tendon origin with a partial deep surface tear, series 6. Image 14/24. The cubital tunnel is normal, with a normal ulnar nerve. Normal biceps tendon and distal insertion. Normal lacertus fibrosis. Normal brachialis musculotendinous insertion. Normal triceps tendon and teno-osseous insertion. Normal olecranon process. There is a 2.8 x 1.2 cm heterogeneous fluid collection of the olecranon bursa. The visualized distal humerus, proximal radius, and ulna are normal. There is no acute fracture. The visualized muscles of the distal arm and proximal forearm are normal. MRI/Upper Ext Joint Only(Routine) IMPRESSION: Tendinosis with partial tearing of the common extensor and common flexor tendons. Joint effusions. Olecranon bursitis with fluid collection. Electronically Signed: Lino Lowry MD at 23:52 EDT , Service support ,
== END ==
PROVIDERS: PCP Family Medicine
DX: M25.521 Pain in right elbow (principal)
CPT/HCPCS: 73221

== ENCOUNTER → 2020-03-12 16:00 | Outpatient (CLI) | payer OTHER, SELFPAY ==
[2020-03-12 16:00] VITALS: BMI 27.3
--- NOTE | 2020-03-12 16:04 | RAD_ITS ---
STUDY: X-RAY - RIGHT KNEE REASON FOR EXAM: Male, 49 years old. RT KNEE PAIN, FLUID BUILD UP, HX MENISCUS REPAIR TECHNIQUE: 4 view(s) of the knee. COMPARISON: None. FINDINGS: Normal visualized distal femur. Normal visualized proximal tibia and fibula. Normal proximal tibiofibular articulation. There is no demonstrated fracture. There is mild degenerative arthrosis of the medial femorotibial compartment. Normal lateral femorotibial compartment. There is mild degenerative arthrosis of the patellofemoral articulation. There is no demonstrated joint effusion. The soft tissue structures are unremarkable. RAD/Knee 4 or More Views IMPRESSION: No fractures. No dislocations. Mild degenerative changes. Electronically Signed: Rj Diaz MD at 20:34 EDT , Service support ,
== END ==
PROVIDERS: PCP Family Medicine; Referring Provider Orthopaedic Surgery; Visit Provider Orthopaedic Surgery
DX: M25.561 Pain in right knee (principal)
CPT/HCPCS: 73564

== ENCOUNTER → 2020-07-31 | Outpatient (CLI) | payer OTHER, SELFPAY ==
[2020-03-12 16:04] VITALS: BMI 27.3
== END | disposition home or self-care (01) ==
PROVIDERS: PCP Family Medicine; Referring Provider Family Medicine; Visit Provider Family Medicine
DX: L08.9 Local infection of the skin and subcutaneous tissue, unspecified (principal)
CPT/HCPCS: 87070; 87205

== ENCOUNTER → 2020-09-09 16:44 | Outpatient (CLI) | payer OTHER, SELFPAY ==
[2020-03-12 16:04] VITALS: BMI 27.3
--- NOTE | 2020-09-09 16:50 | RAD_ITS ---
STUDY: X-RAY - RIGHT FOOT CLINICAL: Male, 49 years old. Soft tissue mass on the bottom of the foot. TECHNIQUE: 3 view(s) of the foot. COMPARISON: None. FINDINGS: There is an enthesophyte involving the posterior superior calcaneus at the site of insertion of the Achilles tendon. Normal talus and tarsal bones. Minimal arthrosis of the visualized subtalar, talonavicular, calcaneocuboid, tarsal and tarsometatarsal articulations. Normal metatarsi. Normal metatarsophalangeal joint of the great toe. Normal tibial and fibular sesamoid bones. Normal interphalangeal joint of the great toe. Normal phalanges of the great toe. Normal second through fifth metatarsophalangeal joints. Normal interphalangeal joints and phalanges of the lesser toes. The soft tissue structures are unremarkable. No visualized soft tissue mass. RAD/Foot min 3 Views IMPRESSION: Mild arthrosis of the hindfoot. Electronically Signed: Jeromy Clemons DO at 23:46 EST Tel [phone], Service support ,
== END ==
PROVIDERS: PCP Family Medicine; Referring Provider Podiatrist; Visit Provider Podiatrist
DX: M19.072 Primary osteoarthritis, left ankle and foot (principal)
CPT/HCPCS: 73630

== ENCOUNTER → 2020-10-08 10:42 | Outpatient (CLI) | payer OTHER, SELFPAY ==
[2020-03-12 16:04] VITALS: BMI 27.3
--- NOTE | 2020-10-08 10:46 | MRI_ITS ---
STUDY: MRI RIGHT MIDFOOT REASON FOR EXAM: Right foot mass. TECHNIQUE: Standardized fat and water weighted pulse sequences were obtained in all 3 orthogonal planes. COMPARISON: Radiographs 09/09/2020. FINDINGS: Normal talonavicular articulation. Normal calcaneocuboid articulation. Normal navicular-cuneiform articulations. Normal intercuneiform articulations. 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 There is an os trigonum with mild reactive changes at the synchondrosis (inversion recovery sagittal images 19, 20). Normal first tarsometatarsal articulation. Normal Lisfranc ligament. Normal second and third tarsometatarsal articulations. Normal cuboid fourth and cuboid fifth tarsometatarsal articulation. Normal first through fifth metatarsi. Normal tibialis anterior tendon. Normal extensor hallucis longus tendon. Normal extensor digitorum longus tendons. Normal peroneus longus tendon and distal insertion. Normal peroneus brevis tendon and distal insertion. Normal intrinsic muscles of the foot. There is a lobulated mass in the plantar fascia at the level of the first through third metatarsals and plantar to the tibial sesamoid (T2 series 6 images 1-21; T1 sagittal images 14-22) consistent with plantar fibromatosis. The mass measures 1.5 x 5.3 x 7.3 cm (AP x transverse x length). There is a smaller focus of plantar fibromatosis at the plantar aspect of the fifth proximal phalanx (inversion recovery sagittal image 4; T2 series 6 image 1) measuring 1.1 cm in length. 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 Electronically Signed: Trevin Cartwright MD at 12:58 EDT Tel , Service support ,
== END ==
PROVIDERS: PCP Family Medicine; Referring Provider Podiatrist; Visit Provider Podiatrist
DX: R22.41 Localized swelling, mass and lump, right lower limb (principal)
CPT/HCPCS: 73718

== ENCOUNTER 2021-02-02 16:00 | Outpatient (RCR) | payer OTHER, SELFPAY ==
[2020-03-12 16:04] VITALS: BMI 27.3
--- NOTE | 2020-10-01 14:15 | HP.PTEVAL ---
Patient's Visit Information MAGDALENO HANSEN is a 49 year old M referred to Physical Therapy by ASHLEY ROLLE with a diagnosis of RIGHT TKA. Date of Evaluation: 10/01/20 Physical Therapist: Hank Green, PT, Cert MDT, OCS - Visit Plan Frequency: 3x /Week Duration: 5WEEKS Plan: s/p TKA 09/12. PT INTERVETIONS FOCUS ON ROM/FLEXABLITY/STRETTCHING,FOAM ROLLING ,PROGRESS TO PRES'S QUADS/HAMS/HIP,FUNCTIONAL STRENGTHENING - Subjective This 49 y/o male presents to physical theerapy with Right TKA on 09/12/[address] Nguyen at [facility] [place] . Patient d/c 09/13/20 with fww. Patient uses cane at home. Seen yesterday concerned about ROM. Pateint has had knee pain many years had menisectomy 15 years ago then developed progressive DJD. Patiient had few session of [facility] PT about 5 sessions. Patient has some parathesia knee. Difficulty sleeping at night . Pateint uses ice at home. Patient has 1 story with 4steps no rail. Patient is taking shower walkin . Patient driving.Patient goal normal gait and restore full ROM. Patient surgery TKA impairs function gait and RTW.RTD in 3 weeks. SOCAIL: . 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 GAIT: ambulates with straight cene with right knee flexed with decrease stance time and swing phase. BALANCE: good -. STAIRS: alternating with cane. AROM: supine knee flexion 20 -95 degrees. MMT: QUADS 11.6,HAMS 17.5,HIP FLEXION 24.S. EDEMA: mid patella 41 cm,6 above suprapatella 49 cm. TU.59 SECONDS - Goals Goal 1:: I with HEP Goal Time Frame: 4-6 Weeks Goal 2:: Ambaulte with normal gait pattern no device 90% of the time Goal Time Frame: 4-6 Weeks Goal 3:: Improve AROM 5-110 degrees supine knee flexion to improve gait Goal Time Frame: 4-6 Weeks Goal 4:: Improve strength quads/hams to WFL to improve function to good. Goal Time Frame: 2-4 Weeks Goal 5:: Patient to improve WOMAC AND LFES score by 10 points or > to improve function Goal Time Frame: 4-6 Weeks Goal 6:: Noraml balance Goal Time Frame: 4-6 Weeks - Rehabilitation Potential Physical Therapy Diagnosis: This patient underwent S/P TKR with decrease ROM ,strength ,gait ,pain and stairs and unble return to work thus will benifit from skilled PT Rehabilitation Potential: Good - Anticipated Interventions Patient/Client Instruction: Educate patient on: Condition, Plan of Care For the Purpose of:: To decrease pain, To increase ROM, To improve muscle performance and motor function, To improve ability to perform ADL's, To increase tolerance to activity/condition/position, To improve ability of physical actions for home/community/work/leisure, To improve gait and locomotor functions, To improve health of tissue, To decrease soft tissue restriction, To increase flexibility/ROM, To improve endurance, To improve safety with gait, To improve ability to perform tasks related to life management Therapeutic Exercise to Include: Strength training, Endurance training, Balance training, Flexibilty training, Gait and locomotor training, Passive ROM, Active ROM Comment: quads/hams /hip For the Purpose of:: To decrease pain, To increase ROM, To improve muscle performance and motor function, To improve ability to perform ADL's, To increase tolerance to activity/condition/position, To improve performance and independence with ADL's, To improve ability of physical actions for home/community/work/leisure, To improve gait and locomotor functions, To improve health of tissue, To decrease soft tissue restriction, To increase flexibility/ROM, To improve endurance, To improve balance Cryotherapy (ice pack, ice massage): Yes For the Purpose of:: To decrease pain, To decrease swelling/inflammation Thank you for the opportunity to evaluate your patient. For Medicare and Medicare HMO plans, please review the plan of care and approve it. It will need to be FAXED BACK to us at [phone] for Medicare purposes. For Medicare only, by signing this I certify the plan of care. Please let me know if there are questions or concerns regarding this plan of care. Physician Signature: Date:
--- NOTE | 2021-04-21 07:57 | HP.PT.NRP ---
MAGDALENO HANSEN was seen in my office for initial evaluation on 10/01/20. The following Plan of Care was established for this patient: Initial Frequency: 3x /Week Initial Duration: 5WEEKS Patient/Client Instruction: Educate patient on: Condition, Plan of Care For the Purpose of:: To decrease pain, To increase ROM, To improve muscle performance and motor function, To improve ability to perform ADL's, To increase tolerance to activity/condition/position, To improve ability of physical actions for home/community/work/leisure, To improve gait and locomotor functions, To improve health of tissue, To decrease soft tissue restriction, To increase flexibility/ROM, To improve endurance, To improve safety with gait, To improve ability to perform tasks related to life management Therapeutic Exercise to Include: Strength training, Endurance training, Balance training, Flexibilty training, Gait and locomotor training, Passive ROM, Active ROM For the Purpose of:: To decrease pain, To increase ROM, To improve muscle performance and motor function, To improve ability to perform ADL's, To increase tolerance to activity/condition/position, To improve performance and independence with ADL's, To improve ability of physical actions for home/community/work/leisure, To improve gait and locomotor functions, To improve health of tissue, To decrease soft tissue restriction, To increase flexibility/ROM, To improve endurance, To improve balance For the Purpose of:: To reduce risk of recurrence Cryotherapy (ice pack, ice massage): Yes For the Purpose of:: To decrease pain, To decrease swelling/inflammation This patient was last seen in our office . Pertinent comments regarding their Physical therapy will appear below: Patient was seen for PT for s/p R TKR and manipulation focusing on ROM and stretching pain was a influencing factors At this point I will be discontinuing this patient from physical therapy. I would be happy to see this patient again in the future if found appropriate by the physician. Thank you! Hank Green, PT, Cert MDT, OCS Balance/Gait/Functional tests - Balance/Special Test Scores Lower Extremity Functional Score: 57
== END 2021-02-02 19:00 | disposition home or self-care (01) ==
LOC: PT 16:00
PROVIDERS: PCP Family Medicine
DX: M17.11 Unilateral primary osteoarthritis, right knee (principal)
CPT/HCPCS: 97014; 97032; 97110; 97162; 97530; G0283

== ENCOUNTER 2021-05-20 15:44 | Emergency (ER) | payer OTHER, SELFPAY ==
[2021-05-20 15:45] VITALS: BP 159/91; PULSE 84; RESP 16; TEMP 35.9; O2SAT 99; BMI 29.1
[2021-05-20] MEDS: Orphenadrine 60 MG/2 ML Ampul IM (16:22)
[2021-05-20] MEDS: Morphine 4 MG/ML Syringe 6 MG IM (16:22)
--- NOTE | 2021-05-20 16:29 | EDS_ITS ---
HPI History of Present Illness Chief Complaint: Back Informant: patient Narrative Narrative: Patient is a 50-year-old male with history of sciatica presenting with worsening right low back pain. Patient states been going on for about 10 days. Denies any significant events or trauma that started it. He followed up with his primary care doctor 1 week ago and was put on diazepam. He notes that it helps a little bit at night but he just need something stronger to break the spasm. He notes he was here couple years ago and received a couple shots of in his back got better at that point. He denies any numbness, paresthesias, bowel or bladder incontinence, fever or chills. 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 The pain starts in his lower back and radiates to his hip. He notes he does have a bad knee on the contralateral side and walks differently and that might be worsening. He is currently taking an anti-inflammatory with limited relief of his symptoms. [facility] Medical History Normal colonoscopy (~2001) Home Medications omeprazole 40 mg PO DAILY 12/05/14 [History Last Taken Unknown] bupropion HCl 300 mg PO DAILY 06/30/19 [History Last Taken Unknown] lisdexamfetamine 40 mg PO DAILY 06/30/19 [History Last Taken Unknown] methylprednisolone [Medrol (Jacob)] 4 mg PO DAILY #21 tab 05/20/21 [Rx Last Taken Unknown] nabumetone 750 mg PO DAILY 05/20/21 [History Last Taken Unknown] oxycodone-acetaminophen [Percocet] 1 tab PO Q8H PRN 3 Days #9 tab 05/20/21 [Rx Last Taken Unknown] Allergy/AdvReac Type Severity Reaction Status Date / Time No Known Allergies Allergy Verified 05/20/21 15:44 Surgical History Hx of arthroscopy of right knee (~1992) Hx of cervical spine surgery (~2015) Hx of foot surgery (~2017) Social History Smoking Status: Current every day smoker tobacco type: cigarettes ROS ROS ED Constitutional Constitutional ED: Denies chills or fever(s) Eyes Eyes: Denies blurry vision, change in vision or loss of vision Cardiovascular Cardiovascular: Denies chest pain or dizziness Respiratory/Chest Respiratory/Chest: Denies cough or dyspnea Gastrointestinal Gastrointestinal: Denies nausea or vomiting Genitourinary Genitourinary ED: Denies dysuria or hematuria Musculoskeletal Musculoskeletal: Reports back pain; Denies arthralgias, myalgias or neck pain Integumentary Denies rash or wounds Neurologic Neurologic: Denies focal weakness, headache(s), paresthesias or weakness Psychiatric Psychiatric: Denies anxiety or behavioral changes EXAM Physical Exam Const Vital Signs: 05/20/21 15:45 05/20/21 20:07 Temperature 96.7 F L Temperature Source Temporal Pulse Rate 84 68 Respiratory Rate 16 12 Blood Pressure 159/91 H 128/76 H Blood Pressure Mean 113 Pulse Ox 99 97 Oxygen Delivery Method Room Air Positive well nourished and well developed General Appearance ED: well developed HEENT Reports moist mucous membranes Negative for trauma Eyes PERRL and EOMs intact bilaterally Neck supple Neck Narrative: Normal range of motion Resp normal respiratory effort Cardio regular rate and regular rhythm Cardio Narrative: 2+ bilateral PT pulses GI normal to inspection, nondistended, normoactive bowel sounds and no masses Palpation: Negative for pulsatile mass Back/Spine normal to inspection Back/Spine Narrative: No midline tenderness. Patient has mild tenderness palpation of the right L5 paraspinal area Lumbar Spine / Lower Back: straight leg raise positive right; Negative for straight leg raise positive - left Extremity normal to inspection Extremity Narrative: Normal range of motion of the right hip. General Extremety ED: Negative for edema or tenderness General Extremity: Negative for edema Psych mental status grossly normal Skin no rashes or lesions noted and no wounds MDM MDM MDM Narrative Medical decision making narrative: Patient evaluated for atraumatic low back pain. I suspect this is sciatica versus muscle spasms of the back. Given IM Norflex and morphine. No findings consistent with cauda equina syndrome or epidural abscess. On reevaluation he states no improvement of pain. Is given IM Dilaudid. Still no improvement of pain. Is given IV Dilaudid and Valium. Family has improvement of his pain. Is able to ambulate. Will be discharged home with a Medrol Dosepak and a short prescription for Percocet. OARRS report is checked. Patient will follow up with his orthopedist and his PCP. He is counseled that he might require physical therapy or further evaluation for these recurrent flareups of his back pain. Patient is counseled on signs and symptoms requiring return to the emergency room. Patient verbalizes agreement and understand this plan. Patient discharged home in stable and improved condition. Discharge Plan Triage Chief Complaint: Back ED Provider: Magali Mims Dx/Rx/DC Orders Clinical Impression: Acute right-sided back pain with sciatica Instructions: ED Sciatica Prescriptions: New oxycodone-acetaminophen [Percocet] 5-325 mg tablet 1 tab PO Q8H PRN (Reason: pain) 3 Days Qty: 9 RF: 0 methylprednisolone [Medrol (Jacob)] 4 mg tablets,dose pack 4 mg PO DAILY Qty: 21 RF: 0 No Action omeprazole 40 MG capsule 40 mg PO DAILY RF: 0 bupropion HCl 150 MG tablet sustained-release 12 hr 300 mg PO DAILY RF: 0 lisdexamfetamine 40 MG capsule 40 mg PO DAILY RF: 0 nabumetone 750 mg tablet 750 mg PO DAILY RF: 0 Primary Care Provider: Vasile Cox Referrals: Vasile Cox MD [Primary Care Provider] - Disposition Disposition: Home, Self Care Discharge Date/Time: 05/20/21 20:07
[2021-05-20] MEDS: HYDROmorphone 0.5 MG/0.5 ML SYRINGE IM (17:17)
[2021-05-20] MEDS: HYDROmorphone 0.5 MG/0.5 ML SYRINGE IV (18:52)
[2021-05-20] MEDS: diazePAM 5 MG Tablet PO (19:38)
[2021-05-20 20:07] VITALS: BP 128/76; PULSE 68; RESP 12; O2SAT 97
== END 2021-05-20 20:07 | disposition home or self-care (01) ==
PROVIDERS: Emergency Provider Emergency Medicine; PCP Family Medicine
DX: M54.41 Lumbago with sciatica, right side (principal); F17.210 Nicotine dependence, cigarettes, uncomplicated; Z79.1 Long term (current) use of non-steroidal anti-inflammatories (NSAID); Z79.899 Other long term (current) drug therapy
CPT/HCPCS: 96374; 96375; 99284; A4216

== ENCOUNTER → 2021-06-04 15:44 | Outpatient (CLI) | payer OTHER, SELFPAY ==
--- NOTE | 2021-06-04 15:50 | RAD_ITS ---
STUDY: X-RAY CHEST REASON FOR EXAM: Male, 50 years old. COPD TECHNIQUE: PA and lateral views of the chest. COMPARISON: 08/09/2018. FINDINGS: The lungs are clear and expanded. There is no demonstrated pleural abnormality. Normal size heart. Normal mediastinum and ousmane. Normal visualized pulmonary arteries. Normal visualized aortic arch and descending thoracic aorta. Normal visualized thoracic spine. Normal visualized ribs, clavicles, and shoulders. There is no demonstrated abnormality of the visualized soft tissue structures of the upper abdomen. RAD/Chest PA and Lateral IMPRESSION: Normal x-ray examination of the chest. Electronically Signed: Danay Falcon MD at 16:08 EST Tel , Service support ,
== END ==
PROVIDERS: PCP Family Medicine; Referring Provider Family Medicine; Visit Provider Family Medicine
DX: J44.1 Chronic obstructive pulmonary disease with (acute) exacerbation (principal)
CPT/HCPCS: 71046

== ENCOUNTER → 2021-07-16 | Outpatient (CLI) | payer OTHER, SELFPAY | END | disposition home or self-care (01) | LOC: LABSPEC 10:34 | PROVIDERS: PCP Family Medicine; Referring Provider Physician Assistant; Visit Provider Physician Assistant | DX: Z11.52 Encounter for screening for COVID-19 (principal) | CPT/HCPCS: 87635; U0003; U0005 ==

== ENCOUNTER 2021-09-25 15:43 | Outpatient (CLI) | payer OTHER, SELFPAY ==
[2021-09-25 17:36] LABS: Absolute Lymphocyte Count 2.01 X10^3/uL (0.83-4.51); Absolute Neutrophil Count 7.4 X10^3/uL (2.0-7.7); Basophil# 0.06 X10^3/uL; Basophil% 0.5 % (0-1); Eosinophil# 0.07 X10^3/uL; Eosinophils% 0.6 % (0-5); Hematocrit 43.8 % (40-54); Hemoglobin 14.8 g/dL (13.0-16.5); Lymphocyte # 2.01 X10^3/ul (0.83-4.51); Lymphocyte % 17.8 % (19-41); Mean Corp Hgb Conc 33.8 g/dL (32-36); Mean Corpuscular Hgb 31.2 pg (27.0-32.0); Mean Corpuscular Volume 92.2 fL (80-94); Mean Platelet Vol. 10.7 fl (6.2-12.0); Monocyte% 14.2 % (0-10); NRBC Flagged by Analyzer 0 % (0-5); Neutrophil # 7.44 X10^3/uL (2.7-7.7); Neutrophil % 65.8 % (47-70); POSITIVE DIFFERENTIAL YES; RBC Distribution Width CV 13.2 % (11.6-14.6); RBC Distribution Width SD 44.4 fl (35.1-43.9); Red Blood Count 4.75 M/mm3 (4.6-6.2); White Blood Count 11.3 K/mm3 (4.4-11.0)
[2021-09-25 17:46] LABS: Differential Indicated SCAN CRITERIA MET
[2021-09-25 17:59] LABS: ALB/GLOB Ratio 1.1 RATIO (0.9-2.4); AST(SGOT) 15 U/L (15-37); Alanine Aminotransfer ALT/SGPT 27 U/L (16-61); Albumin, Serum 4.1 g/dL (3.2-5.0); Alkaline Phosphatase 73 U/L (45-117); Anion Gap 6 (5-15); BUN 15 mg/dL (7-18); BUN/Creat Ratio 14.7 RATIO (10-20); Calcium,Total 9.2 mg/dL (8.5-10.1); Chloride 103 mmol/L (98-107); Creatinine, Serum 1.02 mg/dL (0.70-1.30); EST Glomerular Filtration Rate 82 mL/min (>60); Est Glom Filt Rate - Afr Amer 99 mL/min (>60); Globulin 3.7 g/dL (2.2-4.2); Glucose 129 mg/dL (74-106); Potassium 3.6 mmol/L (3.5-5.1); Protein, Total 7.8 g/dL (6.4-8.2); Sodium Level 136 mmol/L (136-145); Thyroid Stim Hormone (TSH) 1.23 uIU/mL (0.358-3.74)
[2021-09-25 18:20] LABS: Platelet Estimate ADEQUATE (ADEQ); Red Cell Morphology NORM C+C NORMAL (NORM C&C)
[2021-09-28 12:46] LABS: Pathologist Review Reviewed
[2021-09-30 11:09] LABS: Testosterone, Free 10.29 ng/dL (5.00-21.00)
[2021-09-30 13:33] LABS: Testosterone, % Free 4.38 % (1.50-4.20); Testosterone, Total 235 ng/dL (264-916)
== END 2021-09-25 23:59 | disposition home or self-care (01) ==
LOC: MTLAB 15:46
PROVIDERS: PCP Family Medicine; Referring Provider Family Medicine; Visit Provider Family Medicine
DX: N52.9 Male erectile dysfunction, unspecified (principal); D69.6 Thrombocytopenia, unspecified
CPT/HCPCS: 36415; 80053; 84402; 84403; 84443; 85025

== ENCOUNTER → 2021-11-27 | Outpatient (CLI) | payer OTHER, SELFPAY ==
[2021-11-27 15:29] LABS: Absolute Lymphocyte Count 2.55 X10^3/uL (0.83-4.51); Absolute Neutrophil Count 4.4 X10^3/uL (2.0-7.7); Basophil# 0.07 X10^3/uL; Basophil% 0.8 % (0-1); Eosinophil# 0.26 X10^3/uL; Eosinophils% 3.1 % (0-5); Hemoglobin 14.8 g/dL (13.0-16.5); Lymphocyte # 2.55 X10^3/ul (0.83-4.51); Lymphocyte % 30.2 % (19-41); Mean Corp Hgb Conc 32.9 g/dL (32-36); Mean Corpuscular Hgb 30.1 pg (27.0-32.0); Mean Corpuscular Volume 91.5 fL (80-94); Mean Platelet Vol. 10.8 fl (6.2-12.0); Monocyte# 1.18 X10^3/uL; NRBC Flagged by Analyzer 0 % (0-5); Neutrophil # 4.35 X10^3/uL (2.7-7.7); Neutrophil % 51.7 % (47-70); POSITIVE COUNT YES; RBC Distribution Width CV 12.9 % (11.6-14.6); RBC Distribution Width SD 43.3 fl (35.1-43.9); Red Blood Count 4.92 M/mm3 (4.6-6.2); White Blood Count 8.4 K/mm3 (4.4-11.0)
[2021-11-27 15:45] LABS: Differential Indicated SCAN CRITERIA MET
[2021-11-27 16:03] LABS: Erythrocyte Sedimentation Rate 5 mm/hr (0-20)
[2021-11-27 16:05] LABS: CRP < 2.90 mg/L (0.0-3.0)
[2021-11-27 16:07] LABS: Platelet Estimate ADEQUATE (ADEQ); Red Cell Morphology NORM C+C NORMAL (NORM C&C)
== END | disposition home or self-care (01) ==
LOC: MTLAB 11:22
PROVIDERS: PCP Family Medicine; Referring Provider Orthopaedic Surgery; Visit Provider Orthopaedic Surgery
DX: T84.84XA Pain due to internal orthopedic prosthetic devices, implants and grafts, initial encounter (principal)
CPT/HCPCS: 36415; 85025; 85652; 86140

== ENCOUNTER → 2021-12-04 | Outpatient (CLI) | payer OTHER, SELFPAY ==
--- NOTE | 2021-12-04 09:40 | NM_ITS ---
EXAM: NM BONE SCAN CLINICAL INDICATION: RIGHT KNEE REPLACED 15 MONTHS AGO. PAIN EVER SINCE. RECALL ON ACTUAL KNEE COMPONENTS. -- RECENT NORMAL BLOOD WORK SHOWING NO INFECTION. -- ABNORMAL XRAY DONE REMOTELY. TECHNIQUE: Anterior and posterior 3 hour delayed images of the knees were obtained following the intravenous administration of Tc99m MDP. This report was created using [employer] report generation technology. COMPARISON: None. FINDINGS: JOINTS: Delayed images show increased uptake along the margins of the right knee prosthesis. Appearance is nonspecific and may represent normal reaction, loosening or less likely infection. SOFT TISSUES: The intermediate phase images show no significant differential in soft tissue activity. OTHER FINDINGS: Flow images demonstrate mildly increased flow to the right lower extremity. NM/Bone Scan Three Phase IMPRESSION: Nonspecific increased activity along the right knee prosthesis. Correlation with white blood cell scan may be of further value. Electronically Signed: Rad Ruff MD at 13:48 EDT ,
== END | disposition home or self-care (01) ==
LOC: NM 09:32
PROVIDERS: PCP Family Medicine; Visit Provider Orthopaedic Surgery
DX: T84.84XA Pain due to internal orthopedic prosthetic devices, implants and grafts, initial encounter (principal)
CPT/HCPCS: 78315; A9503

== ENCOUNTER 2022-01-07 10:22 | Emergency (ER) | payer OTHER, SELFPAY ==
[2022-01-07 10:22] VITALS: BP 161/103; PULSE 80; RESP 18; TEMP 36.8; O2SAT 99; BMI 29.0
--- NOTE | 2022-01-07 10:35 | EX.ED.DYSGE1 ---
HPI History of Present Illness Chief Complaint: Allergic Reaction Narrative Narrative: 51-year-old male presenting for evaluation of a rash which is on his buttocks and on his right lower back. Patient states he was cleaning the pool yesterday and was bit by some insect. He noticed some welts on his upper buttocks and now feels itchy all over his body. He went to urgent care today and was evaluated for this and they sent him over to the emergency room for an evaluation because they were concerned they were missing something. Patient does not have any shortness of breath. He denies abdominal pain. He does complain of itching all over. He states his tongue is itching but he does not have any tongue swelling or difficulty swallowing or breathing. Patient has not had any new foods. There is no new soaps, dyes, linens, detergents etc. Patient states he thought maybe it was the pool chemicals but he is used these before. Patient took 3 doses of Benadryl but still feels like he is itching. [facility] Medical History Normal colonoscopy (~2001) Home Medications omeprazole 40 mg capsule,delayed release 40 mg PO DAILY 12/05/14 [History Last Taken Unknown] bupropion HCl 150 mg tablet,12 hr sustained-release 300 mg PO DAILY 06/30/19 [History Last Taken Unknown] lisdexamfetamine 40 mg capsule 40 mg PO DAILY 06/30/19 [History Last Taken Unknown] methylprednisolone 4 mg tablets in a dose pack (Medrol (Jacob)) 4 mg PO DAILY #21 tabs 05/20/21 [Rx Last Taken Unknown] nabumetone 750 mg tablet 750 mg PO DAILY 05/20/21 [History Last Taken Unknown] oxycodone-acetaminophen 5 mg-325 mg tablet (Percocet) 1 tab PO Q8H PRN pain 3 days #9 tabs 05/20/21 [Rx Last Taken Unknown] epinephrine 0.3 mg/0.3 mL injection, auto-injector (EpiPen) 0.3 mg (0.3 mL) IM Q4H PRN anaphylaxis #2 ea 01/07/22 [Rx Last Taken Unknown] prednisone 50 mg tablet 50 mg PO DAILY #5 tabs 01/07/22 [Rx Last Taken Unknown] Allergy/AdvReac Type Severity Reaction Status Date / Time No Known Allergies Allergy Verified 01/07/22 10:24 Surgical History Hx of arthroscopy of right knee (~1992) Hx of cervical spine surgery (~2015) Hx of foot surgery (~2017) Social History Smoking Status: Current every day smoker tobacco type: cigarettes ROS ROS ED Constitutional Constitutional ED: Denies chills or fever(s) Eyes Eyes: Denies change in vision ENT ENT ED: Denies rhinorrhea or sore throat Cardiovascular Cardiovascular: Denies chest pain or palpitations Respiratory/Chest Respiratory/Chest: Denies cough, dyspnea or dyspnea on exertion Gastrointestinal Gastrointestinal: Denies abdominal pain or constipation Genitourinary Genitourinary ED: Denies dysuria or hematuria Musculoskeletal Musculoskeletal: Denies arthralgias, back pain or myalgias Integumentary Reports rash and other Details: Pruritus diffusely ; Denies abscess Neurologic Neurologic: Denies headache(s) or paresthesias Psychiatric Psychiatric: Denies anxiety or depression EXAM Physical Exam Const Vital Signs: 01/07/22 10:22 Temperature 98.2 F Temperature Source Temporal Pulse Rate 80 Respiratory Rate 18 Blood Pressure 161/103 H Blood Pressure Mean 122 Pulse Ox 99 Oxygen Delivery Method Room Air Positive well nourished General Appearance ED: NAD HEENT Reports moist mucous membranes, nasal mucous membranes and turbinates normal and oropharynx normal normal to inspection Face and Sinus: normal facial exam and face symmetric; Negative for facial edema Nose: external nose normal, nares normal and nasal mucous membranes and turbinates normal Mouth ED: Yes oral and palatal mucosa normal, Yes lips normal, Yes tongue normal, Yes salivary gland normal, Yes moist mucous membranes normal, No drooling and No muffled voice Mouth: oral and palatal mucosa normal, lips normal, tongue normal, salivary gland normal, No drooling and No muffled voice Eyes PERRL Neck no lymphadenopathy Chest Wall inspection of chest normal and palpation of chest normal Resp normal respiratory effort and clear to auscultation bilaterally Cardio regular rate and regular rhythm GI Inspection: abdominal distention Neuro oriented x3 and CN's II-XII intact bilaterally Skin Skin Narrative: Slightly erythematous. Rash on the right lower flank. Nontender to palpation. Does appear to be urticarial. This extends onto the upper buttocks. It is not in a dermatomal distribution. MDM MDM MDM Narrative Medical decision making narrative: Patient presenting with urticarial rash. He believes this is from a bug bite. There is no sign of infection. Patient already took Benadryl this morning and this only provides minimal relief. Patient was placed on prednisone. He was counseled that when he gets home he can still do Benadryl every 8 hours. Patient was given an EpiPen just in case his rash worsens. Will require he was counseled if he has to give himself the EpiPen that he needs to return to the ER. Return precautions otherwise discussed. Patient stable for discharge. Impression: 1. allergic reaction 2. Insect sting Lab Data Attestation: I reviewed the patient's lab results. Discharge Plan Triage Chief Complaint: Allergic Reaction ED Provider: Sree Pham Dx/Rx/DC Orders Instructions: ED General Allergic Reactions Prescriptions: New prednisone 50 mg tablet 50 mg PO DAILY Qty: 5 0RF epinephrine [EpiPen] 0.3 mg/0.3 mL auto-injector 0.3 mg IM Q4H PRN (Reason: anaphylaxis) Qty: 2 0RF No Action omeprazole 40 MG capsule 40 mg PO DAILY bupropion HCl 150 MG tablet sustained-release 12 hr 300 mg PO DAILY Label Comments: TAKE 1 (ONE) TABLET TWICE DAIILY lisdexamfetamine 40 MG capsule 40 mg PO DAILY Label Comments: TAKE 1 CAPSULE BY MOUTH EVERY DAY nabumetone 750 mg tablet 750 mg PO DAILY oxycodone-acetaminophen [Percocet] 5-325 mg tablet 1 tab PO Q8H PRN (Reason: pain) 3 Days Qty: 9 0RF methylprednisolone [Medrol (Jacob)] 4 mg tablets,dose pack 4 mg PO DAILY Qty: 21 0RF Primary Care Provider: Vasile Cox Referrals: Vasile Cox MD [Primary Care Provider] - Disposition Disposition: Home, Self Care Discharge Date/Time: 01/07/22 11:31
[2022-01-07] MEDS: predniSONE 20 MG Tablet 60 MG PO (10:49)
== END 2022-01-07 11:31 | disposition home or self-care (01) ==
PROVIDERS: Emergency Provider Student in an Organized Health Care Education/Training Program; PCP Family Medicine; Visit Provider Student in an Organized Health Care Education/Training Program
DX: S30.860A Insect bite (nonvenomous) of lower back and pelvis, initial encounter (principal); T78.40XA Allergy, unspecified, initial encounter; W57.XXXA Bitten or stung by nonvenomous insect and other nonvenomous arthropods, initial encounter; F17.210 Nicotine dependence, cigarettes, uncomplicated; Z79.899 Other long term (current) drug therapy
CPT/HCPCS: 99283

== ENCOUNTER → 2023-04-08 | Outpatient (CLI) | payer OTHER, SELFPAY ==
[2023-04-08 17:50] LABS: Absolute Lymphocyte Count 2.67 X10^3/uL (0.83-4.51); Absolute Neutrophil Count 4.5 X10^3/uL (2.0-7.7); Basophil# 0.08 X10^3/uL; Basophil% 0.9 % (0-1); Eosinophil# 0.18 X10^3/uL; Eosinophils% 2.1 % (0-5); Hematocrit 46.6 % (40-54); Hemoglobin 15.5 g/dL (13.0-16.5); Lymphocyte # 2.67 X10^3/ul (0.83-4.51); Mean Corp Hgb Conc 33.3 g/dL (32-36); Mean Corpuscular Hgb 30.6 pg (27.0-32.0); Mean Corpuscular Volume 92.1 fL (80-94); Mean Platelet Vol. 11.1 fl (6.2-12.0); Monocyte# 1.09 X10^3/uL; Monocyte% 12.7 % (0-10); NRBC Flagged by Analyzer 0 % (0-5); Neutrophil # 4.54 X10^3/uL (2.7-7.7); Neutrophil % 52.8 % (47-70); POSITIVE COUNT YES; RBC Distribution Width CV 13.7 % (11.6-14.6); RBC Distribution Width SD 46.4 fl (35.1-43.9); Red Blood Count 5.06 M/mm3 (4.6-6.2); White Blood Count 8.6 K/mm3 (4.4-11.0)
[2023-04-08 18:35] LABS: Differential Indicated SCAN CRITERIA MET
[2023-04-08 18:36] LABS: Platelet Estimate ADEQUATE (ADEQ)
[2023-04-13 16:10] LABS: Alternaria alternata <0.10 kU/L (Class 0); Aspergillus fumigatus <0.10 kU/L (Class 0); Bahia Grass <0.10 kU/L (Class 0); Bermuda Grass <0.10 kU/L (Class 0); Bluegrass, Kentucky 0.34 kU/L (Class I); Cat Hair/Dander, Standard <0.10 kU/L (Class 0); Cedar, Mountain <0.10 kU/L (Class 0); Cladosporium herbarum <0.10 kU/L (Class 0); Cockroach, American <0.10 kU/L (Class 0); D pteronyssinus 0.15 kU/L (Class 0/I); Dog Epithelia <0.10 kU/L (Class 0); Elm, American White <0.10 kU/L (Class 0); Hazelnut Tree <0.10 kU/L (Class 0); Hickory, White <0.10 kU/L (Class 0); Johnson Grass <0.10 kU/L (Class 0); Maple/Box Elder <0.10 kU/L (Class 0); Mouse Urine <0.10 kU/L (Class 0); Mucor racemosus <0.10 kU/L (Class 0); Mugwort <0.10 kU/L (Class 0); Mulberry, White <0.10 kU/L (Class 0); Nettle <0.10 kU/L (Class 0); Oak, White <0.10 kU/L (Class 0); Penicillium chrysogen <0.10 kU/L (Class 0); Pigweed, Rough <0.10 kU/L (Class 0); Plantain, English <0.10 kU/L (Class 0); Ragweed, Short/Common <0.10 kU/L (Class 0); Sheep Sorrel(Dock) <0.10 kU/L (Class 0); Stemphylium herbarum <0.10 kU/L (Class 0); Sweet Gum <0.10 kU/L (Class 0); Sycamore, American <0.10 kU/L (Class 0)
[2023-04-14 05:07] LABS: Immunoglobulin E 106 IU/mL (6-495)
== END | disposition home or self-care (01) ==
LOC: MTLAB 16:10
PROVIDERS: PCP Family Medicine; Referring Provider Family Medicine; Visit Provider Family Medicine
DX: J30.9 Allergic rhinitis, unspecified (principal)
CPT/HCPCS: 36415; 82785; 85025; 86003

== ENCOUNTER → 2023-07-06 | Outpatient (CLI) | payer OTHER, SELFPAY ==
--- NOTE | 2023-07-06 13:50 | EKG12_ITS ---
Test Reason : PRE-OP Blood Pressure : / mmHG Vent. Rate : 084 BPM Atrial Rate : 084 BPM P-R Int : 124 ms QRS Dur : 094 ms QT Int : 364 ms P-R-T Axes : 050 073 056 degrees QTc Int : 430 ms Normal sinus rhythm Normal ECG Confirmed by BRYANNA WHITE, SINGH ([id number]), society editor NIXON XAVIER ([id number]) on 07/07/2023 10:43:26 AM Referred By: Joe Bolaños Confirmed By:SINGH GUOLD MD
[2023-07-06 14:17] LABS: Hematocrit 43.9 % (40-54); Hemoglobin 14.8 g/dL (13.0-16.5); Mean Corp Hgb Conc 33.7 g/dL (32-36); Mean Corpuscular Hgb 31.4 pg (27.0-32.0); Mean Platelet Vol. 9.9 fl (6.2-12.0); Platelet Count 238 K/mm3 (150-450); RBC Distribution Width CV 12.4 % (11.6-14.6); RBC Distribution Width SD 42.7 fl (35.1-43.9); Red Blood Count 4.72 M/mm3 (4.6-6.2); White Blood Count 7.7 K/mm3 (4.4-11.0)
[2023-07-06 14:37] LABS: Anion Gap 4 (5-15); BUN 13 mg/dL (7-18); BUN/Creat Ratio 11.2 RATIO (10-20); Calcium,Total 8.9 mg/dL (8.5-10.1); Chloride 107 mmol/L (98-107); Creatinine, Serum 1.16 mg/dL (0.70-1.30); EST Glomerular Filtration Rate 70 mL/min (>60); Est Glom Filt Rate - Afr Amer 85 mL/min (>60); Glucose 132 mg/dL (74-106); Potassium 3.9 mmol/L (3.5-5.1); Sodium Level 139 mmol/L (136-145)
== END | disposition home or self-care (01) ==
LOC: PSN 13:48
PROVIDERS: PCP Family Medicine; Referring Provider Orthopaedic Surgery; Visit Provider Orthopaedic Surgery
DX: Z01.818 Encounter for other preprocedural examination (principal); Z01.810 Encounter for preprocedural cardiovascular examination
CPT/HCPCS: 36415; 80048; 85027; 93005

== ENCOUNTER → 2023-09-13 | Outpatient (CLI) | payer OTHER, SELFPAY ==
[2023-09-13 16:19] LABS: Hematocrit 44.6 % (40-54); Hemoglobin 14.8 g/dL (13.0-16.5); Mean Corp Hgb Conc 33.2 g/dL (32-36); Mean Corpuscular Hgb 30.5 pg (27.0-32.0); Mean Platelet Vol. 10.4 fl (6.2-12.0); Platelet Count 220 K/mm3 (150-450); RBC Distribution Width CV 13.1 % (11.6-14.6); RBC Distribution Width SD 44.4 fl (35.1-43.9); Red Blood Count 4.85 M/mm3 (4.6-6.2); White Blood Count 8.9 K/mm3 (4.4-11.0)
[2023-09-13 17:11] LABS: Anion Gap 6 (5-15); BUN 14 mg/dL (7-18); BUN/Creat Ratio 13.5 RATIO (10-20); Calcium,Total 9.6 mg/dL (8.5-10.1); Chloride 106 mmol/L (98-107); Creatinine, Serum 1.04 mg/dL (0.70-1.30); EST Glomerular Filtration Rate 79 mL/min (>60); Est Glom Filt Rate - Afr Amer 96 mL/min (>60); Glucose 105 mg/dL (74-106); Potassium 4.1 mmol/L (3.5-5.1); Sodium Level 138 mmol/L (136-145)
--- OUTSIDE RECORDS SUMMARY | 2023-09-13 23:56 | XMS RPT_ITS | CCD ---
Author Name Unknown Address [address] [place] [address] Organization [facility] Care Team Providers Care Patient Scheduling Coordinator Name Role Phone Kenny WHITE, Vasile Do Primary Care Provider Medications Completed/Discontinued Medications Medication Drug Class(es) Dates Sig (Normalized) Sig (Original) 24 hr buPROPion hydrochloride 300 mg extended release oral tablet (1 source) Aminoketone Start: 01-24-2021 take 1 tablet by mouth once daily buPROPion XL (WELLBUTRIN XL) 300 mg 24 hr tablet Take 300 mg by mouth once daily. 0 01/24/2021 Active Problems Problem Classification Problem Date Documented Date Episodic/Chronic Allergic reactions (1 source) Allergic reaction; Translations: [Allergy, unspecified, initial encounter] Episodic Esophageal disorders (1 source) Gastroesophageal reflux disease; Translations: [Gastro-esophageal reflux disease without esophagitis] Onset: 04-30-2005 04-30-2005 Chronic Mood disorders (1 source) Depressive disorder; Translations: [Other specified depressive episodes] Onset: 04-30-2005 04-30-2005 Chronic Other circulatory disease (1 source) Elevated blood-pressure reading without diagnosis of hypertension; Translations: [Elevated blood-pressure reading, without diagnosis of hypertension] Episodic Substance-related disorders (1 source) Tobacco user; Translations: [Nicotine dependence, unspecified, uncomplicated] Onset: 09-27-2006 09-27-2006 Chronic Results Test Name Value Interpretation Reference Range Facil ity Vital Signs Date Time Vital Sign Value Performing Clinician Cecelia estes 01-07-2022 09:30-0400 Body temperature 97.59 [degF] Aggie Morejon SURFACE WATER TECHNICIAN.CORE FEEDER Work Phone: [facility] 01-07-2022 09:30-0400 Body weight 85.73 kg Aggie Morejon SURFACE WATER TECHNICIAN.CORE FEEDER Work Phone: [facility] 01-07-2022 09:30-0400 Diastolic blood pressure 106 mm[Hg] Aggie Morejon SURFACE WATER TECHNICIAN.CORE FEEDER Work Phone: [facility] 01-07-2022 09:30-0400 Heart rate 88 /min Aggie Morejon SURFACE WATER TECHNICIAN.CORE FEEDER Work Phone: [facility] 01-07-2022 09:30-0400 Respiratory rate 20 /min Aggie Morejon SURFACE WATER TECHNICIAN.CORE FEEDER Work Phone: [facility] 01-07-2022 09:30-0400 SaO2% (BldA) [Mass fraction] 98 % Aggie Morejon SURFACE WATER TECHNICIAN.CORE FEEDER Work Phone: [facility] 01-07-2022 09:30-0400 Systolic blood pressure 176 mm[Hg] Aggie Morejon SURFACE WATER TECHNICIAN.CORE FEEDER Work Phone: [facility] Encounters Encounter Date Encounter Type Care Provider Facility Start: 01-07-2022 End: 01-07-2022 Patient encounter procedure Aggie Morejon APRN.CORE FEEDER Work Phone: [facility] Plan of Treatment Date Care Activity Detail Author Start: 03-18-2022 Influenza vaccination INFLUENZA (Sea son Ended) [facility] Start: 10-13-2019 SHINGRIX VACCINE (1 of 2) SHINGRIX V ACCINE (1 of 2) [facility] Start: 2014 COLOGUARD (FIT-DNA) COLOGUARD (FIT-D NA) [facility] Start: 2014 Colonoscopy COLONOSCOPY [facility] Start: 2014 COLORECTAL CANCER SCREENING COLORECTAL CANCER SCREENING [facility] Start: [address] COLONOGRAPHY [facility] Start: 2014 DIABETES SCREEN DIABETES SCREEN [facility] Start: 2014 FECAL OCCULT BLOOD FECAL OCCULT BLOO D [facility] Start: 2014 SIGMOIDOSCOPY SIGMOIDOSCOPY [facility] Start: 2004 LIPID SCREEN LIPID SCREEN [facility] Start: 1988 Urine microalbumin profile DTAP,TDAP ,TD (1 - Tdap) [facility] Start: 10-13-1987 HEPATITIS C SCREENING HEPATITIS C SC REENING [facility] Start: 10-13-1987 HIV SCREENING HIV SCREENING [facility] Start: 10-13-1975 PNEUMOCOCCAL (1 - PCV) PNEUMOCOCCAL (1 - PCV) [facility] Start: 1974 COVID-19 VACCINE (#1) COVID-19 VACCI NE (#1) [facility] Payers Date Payer Category Payer Unknown MMO MMO [employer] [id number] 2021-Present [phone] [address] [address] [place] [address] Indemnity [id number] Social History Date Type Detail Facility 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 Author Type: Nurse Practitioner Type: Progress Notes Filed: 01/07/2022 10:56 AM Note Text: This note was created using NoteWriter. Subjective Magdaleno Goldman is a 51 year old male. 51 year old male with PMH pf GERD AND depressive disorder presents with complaints of itchy rash possible insect bite. Acute onset last night Locates hives on right lateral chest wall States I thought I got bit by something last night while I was in the pool. I took a shower and noticed I had hives on my buttock area. Pts gave him 3 benadryl and put hydrocortisone cream on affected area. Pt went to bed for the night.Woke up at 3 am in a cold sweat. This morning c/o feeling tired, itchy all over, and my tongue feels weird . States that he is experiencing dry mouth +feeling flushed goosebumps all over Of note he also states that he started Celebrex last week. Denies fever, SOB, CP. Denies verbal disturbances The history is provided by the patient. No speech and language specialist was used. Allergic Reaction The primary symptoms are rash and urticaria. The primary symptoms do not include wheezing, shortness of breath, cough, abdominal pain, nausea, vomiting, diarrhea, dizziness, palpitations, altered mental status or angioedema. The current episode started 13 to 24 hours ago. The problem has been gradually worsening. This is a new problem. The rash began yesterday. The rash appears on the torso, neck, chest, back, abdomen, left hand and right hand. The pain associated with the rash is moderate. The rash is associated with itching. The rash is not associated with blisters or weeping. Risk factors for rash include new medications (Celebrex). Significant symptoms also include itching. Significant symptoms that are not present include eye redness or rhinorrhea. PAST MEDICAL HISTORY Diagnosis Date - ADHD (attention deficit hyperactivity disorder) - DEPRESSIVE DISORDER NEC 04/30/2005 - ESOPHAGEAL REFLUX 04/30/2005 No past surgical history on file. ALLERGIES Patient has no known allergies. MEDICATIONS celecoxib (CELEBREX) 200 mg capsule Take 200 mg by mouth twice daily. VYVANSE 40 mg capsule TAKE 1 CAPSULE BY MOUTH DAILY FOR 90 DAYS buPROPion XL (WELLBUTRIN XL) 300 mg 24 hr tablet Take 300 mg by mouth once daily. Omeprazole (PRILOSEC) 40 mg capsule Take 40 mg by mouth once daily. nabumetone (RELAFEN) 500 mg tablet TAKE 2 TABLETS BY MOUTH TWICE A DAY NEEDED FOR PAIN diflunisal (DOLOBID) 500 mg tab Take 500 mg by mouth twice daily. meloxicam (MOBIC) 15 mg tablet TAKE 1/2 TO 1 TABLET BY MOUTH DAILY No family history on file. Social History Tobacco Use - Smoking status: Current Every Day Smoker Packs/day: 1.00 Types: Cigarettes - Smokeless tobacco: Never Used Substance Use Topics - Alcohol use: No - Drug use: Not on file Review of Systems Constitutional: Positive for chills and fatigue. Negative for activity change, appetite change, diaphoresis and fever. HENT: Negative for congestion, drooling, ear discharge, ear pain, facial swelling, hearing loss, postnasal drip, rhinorrhea, sinus pressure, sinus pain, sneezing, sore throat, trouble swallowing and voice change. Eyes: Negative for photophobia, pain, discharge, redness, itching and visual disturbance. Respiratory: Negative for cough, chest tightness, shortness of breath and wheezing. Cardiovascular: Negative for chest pain and palpitations. Gastrointestinal: Negative for abdominal pain, diarrhea, nausea and vomiting. Endocrine: Negative for cold intolerance and heat intolerance. Genitourinary: Negative for difficulty urinating. Musculoskeletal: Negative for arthralgias, back pain, gait problem and joint swelling. Skin: Positive for color change, itching and rash. Negative for pallor and wound. Red itchy rash. Left knee purple. Good ROM. Denies pain. Allergic/Immunologic: Negative for environmental allergies, food allergies and immunocompromised state. Neurological: Negative for dizziness, light-headedness and headaches. Psychiatric/Behavioral: Negative for agitation, behavioral problems and confusion. Objective BP 176/106 Pulse 88 Temp 36.4 ?C (97.6 ?F) Resp 20 Wt 85.7 kg (189 lb) SpO2 98% Physical Exam Vitals and nursing note reviewed. Constitutional: General: He is not in acute distress. Appearance: Normal appearance. He is normal weight. He is not ill-appearing, toxic-appearing or diaphoretic. HENT: Head: Normocephalic. Right Ear: Tympanic membrane, ear canal and external ear normal. There is no impacted cerumen. Left Ear: Tympanic membrane, ear canal and external ear normal. There is no impacted cerumen. Nose: Nose normal. No congestion or rhinorrhea. Mouth/Throat: Mouth: Mucous membranes are moist. Pharynx: No oropharyngeal exudate or posterior oropharyngeal erythema. Eyes: General: No scleral icte (more content not included)... [facility] History of Present illness Narrative 01-07-2022 Aggie Morejon APRN.[facility] - 01/07/2022 9:52 AM EDT Note Date & Type Note Facility 01-07-2022 History of Presen t illness Narrative This note was created using NoteWriter. Subjective Magdaleno Goldman is a 51 year old male. 51 year old male with PMH pf GERD & depressive disorder presents with complaints of itchy rash possible insect bite. Acute onset last night Locates hives on right lateral chest wall States I thought I got bit by something last night while I was in the pool. I took a shower and noticed I had hives on my buttock area. Pts gave him 3 benadryl and put hydrocortisone cream on affected area. Pt went to bed for the night.Woke up at 3 am in a cold sweat. This morning c/o feeling tired, itchy all over, and my tongue feels weird . States that he is experiencing dry mouth +feeling flushed goosebumps all over Of note he also states that he started Celebrex last week. Denies fever, SOB, CP. Denies verbal disturbances The history is provided by the patient. No speech and language specialist was used. Allergic Reaction The primary symptoms are rash and urticaria. The primary symptoms do not include wheezing, shortness of breath, cough, abdominal pain, nausea, vomiting, diarrhea, dizziness, palpitations, altered mental status or angioedema. The current episode started 13 to 24 hours ago. The problem has been gradually worsening. This is a new problem. The rash began yesterday. The rash appears on the torso, neck, chest, back, abdomen, left hand and right hand. The pain associated with the rash is moderate. The rash is associated with itching. The rash is not associated with blisters or weeping. Risk factors for rash include new medications (Celebrex). Significant symptoms also include itching. Significant symptoms that are not present include eye redness or rhinorrhea. PAST MEDICAL HISTORY Diagnosis Date ADHD (attention deficit hyperactivity disorder) DEPRESSIVE DISORDER NEC 04/30/2005 ESOPHAGEAL REFLUX 04/30/2005 No past surgical history on file. ALLERGIES Patient has no known allergies. MEDICATIONS celecoxib (CELEBREX) 200 mg capsule Take 200 mg by mouth twice daily. VYVANSE 40 mg capsule TAKE 1 CAPSULE BY MOUTH DAILY FOR 90 DAYS buPROPion XL (WELLBUTRIN XL) 300 mg 24 hr tablet Take 300 mg by mouth once daily. Omeprazole (PRILOSEC) 40 mg capsule Take 40 mg by mouth once daily. nabumetone (RELAFEN) 500 mg tablet TAKE 2 TABLETS BY MOUTH TWICE A DAY NEEDED FOR PAIN diflunisal (DOLOBID) 500 mg tab Take 500 mg by mouth twice daily. meloxicam (MOBIC) 15 mg tablet TAKE 1/2 TO 1 TABLET BY MOUTH DAILY No family history on file. Social History Tobacco Use Smoking status: Current Every Day Smoker Packs/day: 1.00 Types: Cigarettes Smokeless tobacco: Never Used Substance Use Topics Alcohol use: No Drug use: Not on file Review of Systems Constitutional: Positive for chills and fatigue. Negative for activity change, appetite change, diaphoresis and fever. HENT: Negative for congestion, drooling, ear discharge, ear pain, facial swelling, hearing loss, postnasal drip, rhinorrhea, sinus pressure, sinus pain, sneezing, sore throat, trouble swallowing and voice change. Eyes: Negative for photophobia, pain, discharge, redness, itching and visual disturbance. Respiratory: Negative for cough, chest tightness, shortness of breath and wheezing. Cardiovascular: Negative for chest pain and palpitations. Gastrointestinal: Negative for abdominal pain, diarrhea, nausea and vomiting. Endocrine: Negative for cold intolerance and heat intolerance. Genitourinary: Negative for difficulty urinating. Musculoskeletal: Negative for arthralgias, back pain, gait problem and joint swelling. Skin: Positive for color change, itching and rash. Negative for pallor and wound. Red itchy rash. Left knee purple. Good ROM. Denies pain. Allergic/Immunologic: Negative for environmental allergies, food allergies and immunocompromised state. Neurological: Negative for dizziness, light-headedness and headaches. Psychiatric/Behavioral: Negative for agitation, behavioral problems and confusion. Objective BP 176/106 Pulse 88 Temp 36.4 C (97.6 F) Resp 20 Wt 85.7 kg (189 lb) SpO2 98% Physical Exam Vitals and nursing note reviewed. Constitutional: General: He is not in acute distress. Appearance: Normal appearance. He is normal weight. He is not ill-appearing, toxic-appearing or diaphoretic. HENT: Head: Normocephalic. Right Ear: Tympanic membrane, ear canal and external ear normal. There is no impacted cerumen. Left Ear: Tympanic membrane, ear canal and external ear normal. There is no impacted cerumen. Nose: Nose normal. No congestion or rhinorrhea. Mouth/Throat: Mouth: Mucous membranes are moist. Pharynx: No oropharyngeal exudate or posterior oropharyngeal erythema. Eyes: General: No scleral icterus. Right eye: No discharge. Left eye: No discharge. Extraocular Movements: Extraocular movements intact. Conjunctiva/sclera: Conjunctivae normal. Pupils: Pupils are equal, round, and reactive to light. Cardiovascular: Rate and Rhythm: Normal rate and regular rhythm. Pulses: Normal pulses. Heart sounds: Normal heart sounds. Pulmonary: Effort: Pulmonary effort is normal. No respiratory distress. Breath sounds: Normal breath sounds. No stridor. No wheezing, rhonchi or rales. Chest: Chest wall: No tenderness. Abdominal: General: Abdomen is flat. Bowel sounds are normal. There is no distension. Palpations: Abdomen is soft. There is no mass. Tenderness: There is no abdominal tenderness. There is no guarding. Hernia: No hernia is present. Musculoskeletal: General: No swelling, tenderness, deformity or signs of injury. Normal range of motion. Cervical back: Normal range of motion. No rigidity or tenderness. Skin: General: Skin is warm and dry. Capillary Refill: Capillary refill takes less than 2 seconds. Findings: Erythema and rash present. No lesion. Comments: Red, pruritic skin on torso and back. 4 X 3 cm raised hive on right lateral chest wall. Pt talking in full sentences. Denies trouble swallowing but, clicks tongue when talking due to tongue feeling Itchy .. States my hand feel hot . Neurological: General: No focal deficit present. Mental Status: He is alert and oriented to person, place, and time. Mental status is at baseline. Motor: No weakness. Psychiatric: Mood and Affect: Mood normal. Behavior: Behavior normal. Thought Content: Thought content normal. Judgment: Judgment normal. Assessment and Plan ASSESSMENT/PLAN: 1. Allergic reaction, initial encounter - ICD9: 995.3, ICD10: T78.40XA Unknown cause. Possible new medication vs anticholinergic effect Of concern He is hypertensive here in clinic, no history of HTN Continues to open and close mouth so dry Flushed. Pt sent to [facility] for higher acuity of care, ie IV with fluids, steroids, and monitoring for improvement of symptoms. 2. Elevated blood pressure reading without diagnosis of HTN. Jazmin Vallejo TEACHING PROVIDER (Physician/PA/SURFACE WATER TECHNICIAN) NOTE OF PERSONAL INVOLVEMENT IN CARE: I have personally seen and examined the patient and performed the medical decision-making components. I have reviewed the Advanced Practice Registered Nurse (SURFACE WATER TECHNICIAN) Student's documentation and verified the findings in the note as written. Any additions or changes are noted in bold/italics. Signature: Aggie Morejon Date: 01/07/2022 Time: 10:55 AM documented in this encounter [facility] Progress note 05-27-2021 Note Date & Type Note Facility 05-27-2021 Note HNO ID: [id number] Author: Ba Sparks MD Service: ? Author Type: Physician Type: Progress Notes Filed: 05/27/2021 7:38 AM Note Text: Patient presents with: Nasal Congestion: drainage, cough, sore throat and diarrhea x 2 days HPI: Started feeling sick 2 days ago. He had a negative COVID test at [facility] Tuesday (results in <1h). He presents for persistent cough. If feels like COPD exacerbation. Positive symptoms: Cough, shortness of breath, Sore throat, Nasal Congestion, Rhinorrhea, Diarrhea, Headache, Negative symptoms: Fever, Chills, Vomiting, OTC: Cold Medicine, benzonatate Treated in the ED 1 week ago for back pain with medrol and percocet. Smoker. PAST MEDICAL HISTORY Diagnosis Date - DEPRESSIVE DISORDER NEC 04/30/2005 - ESOPHAGEAL REFLUX 04/30/2005 MEDICATIONS: Current Outpatient Medications Medication Sig - VYVANSE 40 mg capsule TAKE 1 CAPSULE BY MOUTH DAILY FOR 90 DAYS - buPROPion XL (WELLBUTRIN XL) 300 mg 24 hr tablet Take 300 mg by mouth once daily. - Omeprazole (PRILOSEC) 40 mg capsule Take 40 mg by mouth once daily. - nabumetone (RELAFEN) 500 mg tablet TAKE 2 TABLETS BY MOUTH TWICE A DAY NEEDED FOR PAIN - diflunisal (DOLOBID) 500 mg tab Take 500 mg by mouth twice daily. - meloxicam (MOBIC) 15 mg tablet TAKE 1/2 TO 1 TABLET BY MOUTH DAILY No current facility-administered medications for this visit. ALLERGIES: ALLERGIES No Known Allergies VITALS: BP 126/72 Pulse 86 Temp 36.2 ?C (97.1 ?F) Resp 16 Wt 84.8 kg (187 lb) SpO2 97% PHYSICAL EXAM: GEN: mildly ill appearing HEENT: PERRL, EOMI, conjunctiva clear Ears: canals clear. TMs without erythema, bulge, or effusion Sinuses: non-tender frontal sinus, non-tender maxillary sinuses Throat: moist mucous membranes, mild erythema, no exudate Neck: supple, no thyromegaly, no lymphadenopathy HEART: regular rate and rhythm, no murmurs LUNGS: scattered wheezes, no crackles, no increased WOB; frequent coughing ASSESSMENT/PLAN: 1. URI, acute - ICD9: 465.9, ICD10: J06.9 - suspect viral URI, differential includes COVID-19. - Discussed supportive care treatment with home isolation, rest, cold medicine, and analgesia. Rx for prednisone taper and tessalon. He has an inhaler at home if needed. - Red flags to seek further treatment include chest pain, shortness of breath, and lethargy; in the ER if severe. Xray is not available yet this morning. He will start treatment and testing and defer xray today. He may call back tomorrow if he would like to have CXR for cough and shortness of breath to assess for pneumonia. - 2019 CORONAVIRUS Ba Sparks MD [facility] Progress note 03-27-2021 Note Date & Type Note Facility 03-27-2021 Note HNO ID: [id number] Author: Leana Quintero PA-C Service: ? Author Type: Physician Rail Switch Operator Type: Progress Notes Filed: 03/27/2021 5:44 PM Note Text: This note was created using NoteWriter. Subjective Magdaleno Goldman is a 50 year old male. HPI Patient presents with congestion, headache and cough for 1 day. He was exposed to covid at work. No cp or sob. No fever. No nv. He did have some diarrhea this am. No loss of smell or taste. He is vaccinated for covid19. His bp is noted to be elevated. He does not have history of hypertension. No symptoms associated. He did not take any sudafed today. Review of Systems Constitutional: Negative. HENT: Positive for congestion, postnasal drip and sore throat. Respiratory: Positive for cough. Negative for shortness of breath. Cardiovascular: Negative. Gastrointestinal: Negative. Genitourinary: Negative. Musculoskeletal: Positive for myalgias. All other systems reviewed and are negative. PAST MEDICAL HISTORY Diagnosis Date - DEPRESSIVE DISORDER NEC 04/30/2005 - ESOPHAGEAL REFLUX 04/30/2005 Current Outpatient Medications Medication Sig Dispense Refill - Omeprazole (PRILOSEC) 40 mg capsule Take 40 mg by mouth once daily. - VYVANSE 40 mg capsule TAKE 1 CAPSULE BY MOUTH DAILY FOR 90 DAYS - meloxicam (MOBIC) 15 mg tablet TAKE 1/2 TO 1 TABLET BY MOUTH DAILY - buPROPion XL (WELLBUTRIN XL) 300 mg 24 hr tablet Take 300 mg by mouth once daily. - PSEUDOEPHEDRINE HCL (SUDAFED ORAL) Take by mouth. (Patient not taking: Reported on 03/27/2021 ) - codeine-guaiFENesin (ROBITUSSIN AC) 10-100 mg/5 mL syrup Take 5-10 mL by mouth four times daily as needed for Cough. May cause drowsiness. (Patient not taking: Reported on 03/27/2021) 120 mL 0 - codeine-guaiFENesin (ROBITUSSIN AC) 10-100 mg/5 mL syrup Take 5-10 mL by mouth four times daily as needed for Cough. May cause drowsiness. (Patient not taking: Reported on 03/27/2021) 120 mL 0 - terbinafine (LAMISIL) 250 mg ORAL tablet Take 250 mg by mouth once daily. (Patient not taking: Reported on 03/27/2021 ) No current facility-administered medications for this visit. No past surgical history on file. No family history on file. Social History Tobacco Use - Smoking status: Current Every Day Smoker Packs/day: 1.00 Types: Cigarettes - Smokeless tobacco: Never Used Substance Use Topics - Alcohol use: No - Drug use: Not on file Objective BP 162/100 Pulse 82 Temp 36.8 ?C (98.2 ?F) Resp 16 Wt 80.7 kg (178 lb) SpO2 97% Physical Exam Vitals reviewed. Constitutional: Appearance: Normal appearance. HENT: Head: Normocephalic and atraumatic. Right Ear: Tympanic membrane, ear canal and external ear normal. Left Ear: Tympanic membrane, ear canal and external ear normal. Nose: Congestion present. Mouth/Throat: Mouth: Mucous membranes are moist. Pharynx: Oropharynx is clear. Cardiovascular: Rate and Rhythm: Normal rate and regular rhythm. Heart sounds: Normal heart sounds. Pulmonary: Effort: Pulmonary effort is normal. Breath sounds: Normal breath sounds. Musculoskeletal: Cervical back: Neck supple. Lymphadenopathy: Cervical: No cervical adenopathy. Skin: General: Skin is warm and dry. Findings: No rash. Neurological: General: No focal deficit present. Mental Status: He is alert and oriented to person, place, and time. Assessment and Plan ASSESSMENT/PLAN: 1. Viral URI with cough - ICD9: 465.9, ICD10: J06.9 - Discussed viral etiology and rationale for treatment. - Symptomatic treatment with prn analgesia - Supportive care with fluids and rest - Follow up in 3-5 days if symptoms persist or sooner if worsening of symptoms - Recommended a recheck of his nita in 1-2 weeks at his pcp. Patient agreeable. Recheck here 162/100. - 2019 CORONAVIRUS Leana Quintero PA-C [facility] Evaluation note Note Date & Type Note Facility documented in this encounter [facility] Summary Purpose Family History No Family History Records Found Advance Directives No Advanced Directives Records Found Additional Source Comments Source Comments (unrecognize d section and content) In the event this informatio n is protected by the Federal Confidentiality of Alcohol and Drug Abuse Patient Records regulations: The Federal rules restrict any use of the information to criminally investigate or prosecute any alcohol or drug abuse patient.[facility] Reason for Visit (unrecogniz ed section and content) Care Teams (unrecognized sec tion and content) (unrecognized sect ion and content) No Status Records Found INFORMATION SOURCE (unrecogn ized section and content) FOR RECORDS PERTAINING TO PATIENTS WHO ARE OR HAVE BEEN ENROLLED IN A CHEMICAL DEPENDENCY/SUBSTANCEABUSE PROGRAM, SOME INFORMATION MAY BE OMITTED. This clinical summary was aggregated from multiple sources. Caution should be exercised in using it in the provision of clinical care. This summary normalizes information from multiple sources, and as a consequence, information in this document may materially change the coding, format and clinical context of patient data. In addition, data may be omitted in some cases. CLINICAL DECISIONS SHOULD BE BASED ON THE PRIMARY CLINICAL RECORDS. [facility] [employer] [facility]. provides no warranty or guarantee of the accuracy or completeness of information in this document.
== END | disposition home or self-care (01) ==
LOC: LAB 15:47
PROVIDERS: PCP Family Medicine; Referring Provider Physician Assistant; Visit Provider Physician Assistant
DX: Z01.818 Encounter for other preprocedural examination (principal); Z01.810 Encounter for preprocedural cardiovascular examination
CPT/HCPCS: 36415; 80048; 85027

== ENCOUNTER 2023-10-19 07:00 | Outpatient (RCR) | payer OTHER, SELFPAY ==
--- NOTE | 2023-09-22 12:35 | HP.PTEVAL_ITS ---
Patient's Visit Information Visit Information Visit Information: MAGDALENO HANSEN is a 52 year old M referred to Physical Therapy by Dr. Joe Bolaños DO with a diagnosis of L knee arthroscopy: meniscectomy and chondroplasty (DOS: 09/15/23). Date of Evaluation: 09/22/23 Physical Therapist: Daniel Manjarrez DPT Visit Plan Frequency: 3x /Week Duration: 2 Months Plan: -low level ROM (prone hangs, heel slides) -hip/glute, calf, hamstring strengthening (begin with table ex....SLR, hip ABD/clamshells, bridges) once pt can tolerate standing with equal WB, progress to standing ex: HS curls, step ups, STS, shuttle, DL and SL balance -STM and stretching (patellar mobs, hamstrings, quads, ITB) *Pt using unilateral axillary crutches, goal is to get back to no AD, currently WBAT and avoiding stress into flexion until 10/13/23 (HEP: supine heel slides, LAQ, supine quad set, seated HS stretch, SLR) Subjective Subjective: Pt presents to PT after undergoing meniscectomy/chondroplasty on 09/15/2023. Pt Pt reports pain is 9/10 at worst, best is 5/10 using ice machine and taking medicine to help with pain. Pt is able to sleep in bed, brought down a bed to main level of house to sleep. Full bath is on second story, using crutches and supervision from to navigate 16 stairs. Uses 2 crutches in the morning and reduces to 1 as the day progresses. 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 Goals: pt wants to get back to playing golf, working in the yard, get back to work. Pain Left Knee: Pain Intensity (Out of 10): 7 Pain Intensity Range: 5 and 9 Objective Objective: ROM: L knee - AROM - Flex 107 deg, Ext lacking 10 deg MMT: 4+/5 R knee ext and flex, 3/5 L knee ext some glute compensation when completing L quad set, SLR with 10 deg ext lag STS: lean away from L side, but able to bend knee when sitting and using estephania UE support TU.0s with axillary crutch on R side GAIT: antalgic with unilateral axillary crutch, decreased stance time on LLE Pt highly motivated to get back to normal so he can return to work. Pt has excellent potential to regain strength and ROM while following appropriate recovery timeline. Pt required education to not push into end range L knee flex to help with healing and use of tools for pain management: 2 crutches when needed, frequent icing, and stretching. Balance/Special Test Scores WOMAC Total Score: 66 WOMAC Percentatge: 31.2500 Goals Goal 1:: Pt will demonstrate 0-0-120 ROM Goal Time Frame: 4-6 Weeks Goal 2:: Pt will demonstrate good L quad set with no compensations Goal Time Frame: 2 Weeks Goal 3:: Pt will be able to stand for 15+ min with <3/10 pain Goal Time Frame: 2-4 Weeks Goal 4:: Pt will be able to amb. >300 ft. with no AD Goal Time Frame: 6-8 Weeks Goal 5:: Pt will achieve TUG score of <10s with no AD Goal Time Frame: 6-8 Weeks Goal 6:: Pt will demonstrate symmetrical LE strength and 0/10 pain Goal Time Frame: 6-8 Weeks Rehabilitation Potential Physical Therapy Diagnosis: Pt presents to PT with L knee pain, tightness, swelling, and gait deficits. Pt would benefit from skilled PT services to address pain, ROM, strength, and tolerance to WB act with LRD to increase pt's ability to RTW and promote indep with ADLs. Rehabilitation Potential: Excellent Anticipated Interventions Patient/Client Instruction: Educate patient on: Plan of Care For the Purpose of:: To decrease pain, To decrease swelling/inflammation, To increase ROM, To improve nutrient delivery to tissue, To increase oxygenation perfusion, To improve muscle performance and motor function, To improve ability to perform ADL's, To increase tolerance to activity/condition/position, To improve performance and independence with ADL's, To improve ability of physical actions for home/community/work/leisure, To improve gait and locomotor functions, To decrease soft tissue restriction, To increase flexibility/ROM, To improve balance, To improve safety with gait, To assume or resume ADL's, To reduce risk of recurrence, To improve health and function, To foster healthy habits, To improve decision making, To facilitate caregiver knowledge, To improve self management, To prevent re-injury and To improve tolerance to ADL's Therapeutic Exercise to Include: Strength training, Balance training, Postural training, Gait and locomotor training, Neuromotor development, Passive ROM and Active ROM For the Purpose of:: To decrease pain, To decrease swelling/inflammation, To increase ROM, To improve ability to perform ADL's, To increase tolerance to activity/condition/position, To improve ability of physical actions for home/community/work/leisure, To improve health of tissue, To decrease soft tissue restriction, To increase flexibility/ROM, To improve safety with gait, To assume or resume ADL's, To reduce risk of recurrence, To improve health and function, To foster healthy habits, To facilitate caregiver knowledge, To improve self management and To improve ability to perform tasks related to life management Manual Therapy Techniques to Include: Scar massage, Mobilization, Passive ROM and Soft tissue mobilization For the Purpose of:: To decrease pain, To decrease swelling/inflammation, To increase ROM, To improve health of tissue, To decrease soft tissue restriction and To increase flexibility/ROM Functional electric stimulation: Yes TENS: Yes Cryotherapy (ice pack, ice massage): Yes For the Purpose of:: To decrease pain, To decrease swelling/inflammation, To increase ROM and To improve muscle performance and motor function Text: Thank you for the opportunity to evaluate your patient. For Medicare and Medicare HMO plans, please review the plan of care and approve it. It will need to be FAXED BACK to us at [phone] for Medicare purposes. For Medicare only, by signing this I certify the plan of care. Please let me know if there are questions or concerns regarding this plan of care. Physician Signature: Date:
== END 2023-10-19 19:00 | disposition home or self-care (01) ==
LOC: PT 07:00
PROVIDERS: PCP Family Medicine; Visit Provider Orthopaedic Surgery
DX: M17.12 Unilateral primary osteoarthritis, left knee (principal); S83.282D Other tear of lateral meniscus, current injury, left knee, subsequent encounter
CPT/HCPCS: 97110; 97140; 97161